=== PATIENT | female | born 1990 | race African-American/Black ===

== ENCOUNTER 2020-03-15 12:47 | Emergency (ER) | payer MEDICAID, SELFPAY ==
[2020-03-15 13:30] VITALS: BP 166/100; PULSE 90; RESP 16; TEMP 36.8; O2SAT 98; BMI 53.2
--- NOTE | 2020-03-15 13:46 | HMH.EDUTC ---
[facility] [place] Disposition Clinical Impression: Left flank pain Disposition: Home, Self-Care Condition on Discharge: Good Instructions: Acute Abdominal Pain, DI for Abdominal Pain-Adult Additional Instructions: Rest. Take the ibuprofen for pain that I sent in to your pharmacy. Follow up with your primary care physician. We will give you a list of physicians that are taking new patients. Follow up with gynecology. I put in a referral to Dr. Massey. Please call his office and get an appointment for further evaluation. GO TO THE ER FOR ANY WORSENING SYMPTOMS Prescriptions: Ibuprofen [Ibuprofen 600mg Tablet] 600 mg PO Q6HP PRN #30 tab PRN Reason: Mild Pain Transmission Status: Received by [facility] Ondansetron [Zofran 4mg ODT] 4 mg PO Q8HP PRN #10 tab.rapdis PRN Reason: Nausea Transmission Status: Received by [facility] Referrals: PCP,No [Primary Care Provider] - Elia Massey MD [Staff Physician] - Forms: Work/School Release Time of Disposition: 14:21 Medical Decision Making - Medical Records Medical records reviewed: No: I reviewed the patient's medical records. - Kenji Inquiry Pt receiving controlled substance: No Vital Signs: 03/15/20 13:30 03/15/20 14:46 Temperature 98.2 F 98.2 F Temperature Source Oral Oral Pulse Rate 90 Pulse Rate [Radial] 90 Respiratory Rate 16 16 Blood Pressure 166/100 H Blood Pressure [Right Arm] 166/100 H Blood Pressure Mean [Right Arm] 122 Blood Pressure Source Automatic Cuff Blood Pressure Source [Right Arm] Automatic Cuff Blood Pressure Position Sitting Blood Pressure Position [Right Arm] Sitting 02 Sat by Pulse Oximetry 98 Oxygen Delivery Method Room Air Room Air - Lab Data Lab results reviewed: Yes: I reviewed the patient's lab results. Lab Results 03/15/20 13:52: Urine Color Yellow, Urine Appearance Clear, Urine pH 6.0, Ur Specific [place] >= 1.030, Urine Protein Trace, Urine Glucose (UA) Negative, Urine Ketones Negative, Urine Blood Negative, Urine Nitrate Negative, Urine Bilirubin Negative, Urine Urobilinogen 0.2, Ur Leukocyte Esterase Negative Orders (Tests/Meds): ED MEDICATIONS Discontinued Medications Generic Name Dose Route Start Last Admin Trade Name Freq PRN Reason Stop Dose Admin Ketorolac Tromethamine 60 mg 03/15/20 14:15 03/15/20 14:39 Ketorolac 60mg/2ml Vial IM 03/15/20 14:16 60 mg ONCE ONE Administration Medical Decision Narrative: She refused to be transferred to er today. She is to return gabriella if her symptoms worsen. [facility] [place] HPI - General Stated complaint: ovarian pain Time Seen by Provider: 03/15/20 13:46 Mode of Arrival: Ambulatory Source of Information: Patient Limitations: No Limitations Description of Symptoms (Recalled from Triage Doc. by RN): LEFT OVARY PAIN INCREASED THROUGH OUT THE DAY HEENT Symptoms (Recalled from RN notes): No Resp Symptoms (Recalled from RN notes): No Skin Symptoms (Recalled from RN notes): No MS Symptoms (Recalled from RN notes): No Functional Status (Recalled from RN notes): WNL - History of Present Illness Provider Complaint: She states that she has a history of left ovarian cyst pain. This episode started 2 days ago. She rates her pain 6/10 at this time. Nothing that she can identify makes the pain worse or better at this time. She has been taking tylenol for the pain with not much relief. She denies any urinary complaints. She is currently on her period. - Related Data Previous Rx's Medication Instructions Recorded Ibuprofen [Ibuprofen 600mg 600 mg PO Q6HP PRN #30 tab 03/15/20 Tablet] Ondansetron [Zofran 4mg ODT] 4 mg PO Q8HP PRN #10 tab.rapdis 03/15/20 Allergies Allergy/AdvReac Type Severity Reaction Status Date / Time No Known Allergies Allergy Verified 12/28/18 21:08 - Worker's Comp Is this a Worker's Comp case?: No [facility] History - Hepatitis A Screen Drug use history?: No High risk sexual
[2020-03-15 14:46] VITALS: BP 166/100; PULSE 90; RESP 16; TEMP 36.8; O2SAT 98
[2020-03-15 18:01] LABS: Apearance,Urine Clear (Clear); Bilirubin,Urine Negative (Negative); Blood, Urine Negative (Negative); Color,Urine Yellow (Yellow); Glucose,Urine (UA) Negative (Negative); Ketones,Urine Negative (Negative); Protein,Urine Trace (Negative); Specific Gravity, Urine >= 1.030 (1.005-1.030)
[2020-03-15 18:02] LABS: UTC Leukocyte Esterase,Urine Negative (Negative); UTC Nitrate,Urine Negative (Negative); Urobilinogen,Urine 0.2 EU/dl (0.2)
== END 2020-03-15 14:48 | disposition home or self-care (01) ==
PROVIDERS: Emergency Provider Nurse Practitioner Family
DX: R10.32 Left lower quadrant pain (principal); R03.0 Elevated blood-pressure reading, without diagnosis of hypertension; F17.210 Nicotine dependence, cigarettes, uncomplicated; F41.8 Other specified anxiety disorders; K21.9 Gastro-esophageal reflux disease without esophagitis
CPT/HCPCS: 81003; 96372; 99202

== ENCOUNTER 2020-03-21 15:42 | Emergency (ER) | payer MEDICAID, SELFPAY ==
--- NOTE | 2020-03-21 | US_ITS ---
PROCEDURE: US TRANSVAGINAL CLINICAL INDICATION: Left lower quadrant pain, heavy painful periods COMPARISON: No exams were available for comparison FINDINGS: UTERUS: 8cm x 4cmx 4cm with a combined endometrial thickness of 3.7mm LEFT OVARY: 5cmxx3.1cm with a volume of . RIGHT OVARY: [id number] with a volume of 14.1ml. There is a fibroid in the fundus of the uterus anteriorly measuring 2 cm. There is a left ovarian cyst at 4.8 cm with other smaller follicles in the left ovary. There are few small follicles of the right ovary. There is bilateral ovarian blood flow. No cul-de-sac fluid evident. IMPRESSION: 1. 2 cm uterine fibroid. 2. Enlarged left ovary with 4.8 cm left ovarian cyst which appears simple in nature Dictated by: Marcelo Junior MD 03/22/2020 11:14 Marcelo Junior MD in [place] 03/22/2020 11:14
[2020-03-21 16:00] VITALS: BP 161/91; PULSE 99; RESP 18; TEMP 37.1; O2SAT 98; BMI 53.2
[2020-03-21 16:07] LABS: Microscopic, Urine URINE MICROSCOPIC (MICROSCOPIC)
[2020-03-21 16:12] LABS: Urine Pregnancy, HCG Qual. Negative (Negative)
--- NOTE | 2020-03-21 16:17 | HMH.EDGENADL ---
ED Disposition Clinical Impression: Left ovarian cyst Uterine fibroid Qualifiers: Uterine leiomyoma location: unspecified location Qualified Code(s): D25.9 - Leiomyoma of uterus, unspecified Disposition: Home, Self-Care Condition on Discharge: Good Instructions: DI for Uterine Fibroids, DI for Ovarian Cyst Additional Instructions: Follow-up with Dr. Massey in his office. Ibuprofen as needed for pain. May take Beggs as needed at night when you are not working or driving. Zofran as needed for vomiting or nausea. Return to the emergency department if severe intractable pain, intractable vomiting, fever. Additional instructions for CONTROLLED SUBSTANCES: You have been prescribed a medication that is a controlled substance. Controlled substances include pain medications known as opiates and sedative nerve medications known as benzodiazepines. Tramadol, fioricet, and gabapentin are also controlled substances. Some common opiates include: Codeine (such as Tylenol #3) Hydrocodone (Vicodin, Lortab, Lorcet, Beggs) Oxycodone (Percocet, Percodan, Oxycodone, Oxy IR) Some common benzodiazepines include: Diazepam (Valium) Lorazepam (Ativan) Alprazolam (Xanax) Clonazepam (Klonopin) Oxazepam (Serax) All of these controlled substances are highly addictive and frequently abused. Misuse can and frequently does lead to addiction as well as overdose and . Medication should be stored in a locked cabinet or other secure storage unit. Do not store the medication in a motor vehicle. Short term supplies, 3 days or less, are prescribed because of the highly addictive nature of the medication. Any of the controlled substance medication NOT taken should be disposed of properly and NOT SAVED. The recommended method of disposing of unused medications is: Place the medicines in a sealable plastic bag. If the medicine is a solid, crush it or add water to dissolve it. Add something undesirable (cat litter, coffee grounds, etc.) Dispose of sealed bag in household trash Do not flush or pour unused medicines down a sink or drain. Controlled substances should not be shared, given away or sold. Because of the addictive nature and frequent abuse, these medications are sometimes stolen. These medications should be kept in a safe place where they cannot be stolen. Do not keep them in your car or purse. Lost or stolen prescriptions for controlled substances WILL NOT BE REFILLED in this emergency department, regardless of whether a police report was filed. Prescriptions: Hydrocod/Acet 5/325 mg [Beggs 5/325mg tablet] 1 tab PO Q6HP PRN #10 tab PRN Reason: Pain Transmission Status: Received by [facility] Ibuprofen [Ibuprofen 800mg Tab] 800 mg PO Q8HP PRN #30 tab PRN Reason: Moderate Pain Transmission Status: Received by [facility] Ondansetron [Zofran 4mg ODT] 4 mg PO TIDP PRN #10 tab.rapdis PRN Reason: Nausea And Vomiting Transmission Status: Received by [facility] Referrals: PCP,No [Primary Care Provider] - - Critical Care Critical Care Time: No Attestation: On 03/21/20, the high probability of a clinically significant, sudden or life threatening deterioration of the following system(s) required my full and direct attention, intervention and personal management. The time I documented below is in addition to time spent performing reported procedures but includes the following listed in this critical care notation. Medical Decision Making - Medical Records Medical records reviewed: Yes: I reviewed the patient's medical records. - Kenji Inquiry Pt receiving controlled substance: Yes Kenji was queried for this patient: Yes Reference #:: [id number] Risks and benefits of using a controlled substance: were discussed with pt by me Comment: 0 rxs. Vital Signs: 03/21/20 16:00 03/21/20 16:19 03/21/20 17:30 Temperature 98.8 F Temperature Source Oral Pulse Rate [Right
[2020-03-21 16:19] VITALS: PULSE 91; O2SAT 97
[2020-03-21 16:19] LABS: Appearance,Urine CLEAR (Clear); Bilirubin,Urine Negative (Negative); Blood, Urine 2+ (Negative); Color,Urine YELLOW (Yellow); Glucose,Urine (UA) Negative (Negative); Ketones,Urine Negative (Negative); Leukocyte Esterase,Urine Negative (Negative); Nitrate,Urine Negative (Negative); PH,Urine 5.5 (5.0-8.5); Protein,Urine Negative (Negative); Specific Gravity, Urine >= 1.030 (1.005-1.030); Urobilinogen,Urine 0.2 EU/dl (0.2)
[2020-03-21 16:21] LABS: Bacteria,Urine 2+ /lpf; RBC,Urine Occasional #/hpf (0-3)
[2020-03-21 16:25] LABS: Chloride 105 mmol/L (98-107); Potassium 3.6 mmoL/L (3.5-5.1); Sodium 141 mmol/L (136-145)
--- NOTE | 2020-03-21 16:25 | CT_ITS ---
PROCEDURE: CT ABDOMEN PELVIS W CON CLINICAL INDICATION: LLQ abdominal pain COMPARISON: No exams were available for comparison TECHNIQUE: IV Contrast: 75ML OPTIRAY 350 Oral Contrast None Axial images obtained with sagittal and coronal reformats. All CT scans at the facility use one or more dose reduction, viz: automated exposure control, ma/kV adjustment per patient size (including targeted exams where dose is matched to indication, i.e. head), or iterative reconstruction technique. FINDINGS: LOWER THORAX: No acute finding ABDOMEN & PELVIS: Fatty liver. No focal liver lesion. Mild splenomegaly at 14 cm. The adrenal glands, pancreas, and kidneys have an unremarkable appearance. Unremarkable appendix. No intestinal obstruction or free air. There is a 4 cm left ovarian cyst. No acute bony anomaly. IMPRESSION: No acute finding. 4 cm left ovarian cyst Dictated by: Marcelo Junior MD 03/22/2020 11:12 Marcelo Junior MD in [place] 03/22/2020 11:12
[2020-03-21 16:28] LABS: Alanine Aminotransferase 20 U/L (12-78); Albumin Level 4.5 g/dl (3.5-5.0); Albumin/Globulin Ratio 1.2 (1.1-1.8); Alkaline Phosphatase 85 U/L (38-126); Anion Gap 12.6 mEq/L (5-15); Aspartate Amino Transferase 23 U/L (14-36); Basophils % 0.3 % (0.1-2.0); Bilirubin,Total 0.2 mg/dl (0.2-1.3); Blood Urea Nitrogen 10 mg/dl (7-17); Carbon Dioxide 27 mmol/L (22.0-30.0); Creatinine Clearance Estimated 135 mL/min (50-200); Eosinophils # 0.2 K/mm3 (0.0-0.4); Eosinophils % 2.1 % (0.1-12.0); Estimated Glomerular Filt Rate 118 ml/min (>60); GFR (African American) 143 ML/MIN (>60); Globulin 3.7 g/dL (1.3-3.2); Hematocrit 43.1 % (37.0-47.0); Hemoglobin 13.7 g/dL (12.2-16.2); Lymphocytes # 2.7 K/mm3 (0.7-4.5); Lymphocytes % 26.6 % (10-50); Mean Corpuscular HGB Conc 31.7 g/dL (31.8-35.4); Mean Corpuscular Hemoglobin 27.4 pg (27.0-31.2); Mean Corpuscular Volume 86.3 fl (81-99); Mean Platelet Volume 8.2 fl (7.4-10.4); Monocytes # 0.4 K/mm3 (0.1-1.0); Monocytes % 3.8 % (1.7-9.3); Neutrophils # 6.8 K/mm3 (1.8-7.8); Neutrophils % 67.3 % (37.0-80.0); Platelet Count 290 K/mm3 (142-424); Red Cell Distribution Width 14.2 % (11.5-17.5); Total Protein,Serum 8.2 g/dl (6.3-8.2); White Blood Count 10.1 K/mm3 (4.8-10.8)
[2020-03-21 16:29] LABS: Calcium 9.2 mg/dl (8.4-10.2); Glucose 86 mg/dl (74-100)
[2020-03-21 16:43] LABS: Lipase 86 U/L (23-300)
--- NOTE | 2020-03-21 16:44 | PC.NURSE ---
pt to CT
[2020-03-21 17:30] VITALS: BP 180/95; PULSE 91; RESP 20; O2SAT 99
[2020-03-21 18:12] VITALS: BP 158/94; PULSE 85; RESP 16; TEMP 36.6; O2SAT 98
== END 2020-03-21 18:14 | disposition home or self-care (01) ==
PROVIDERS: Emergency Provider Emergency Medicine
DX: N83.202 Unspecified ovarian cyst, left side (principal); D25.9 Leiomyoma of uterus, unspecified; I10 Essential (primary) hypertension; F17.210 Nicotine dependence, cigarettes, uncomplicated
CPT/HCPCS: 74177; 76830; 80053; 81001; 81025; 83690; 85025; 87086; 96365; 96375; 99283; J2405; Q9967

== ENCOUNTER 2020-06-15 10:18 | Emergency (ER) | payer MEDICAID, SELFPAY ==
[2020-06-15 10:30] VITALS: BP 151/76; PULSE 90; RESP 20; TEMP 36.9; O2SAT 98; BMI 53.2
--- NOTE | 2020-06-15 10:48 | HMH.EDUTC ---
[facility] [place] Clinical Impression: Sinusitis Qualifiers: Sinusitis location: unspecified location Chronicity: unspecified Qualified Code(s): J32.9 - Chronic sinusitis, unspecified Disposition: Home, Self-Care Condition on Discharge: Good Instructions: Sinusitis, DI for Sinusitis, DI for COVID-19 (Suspected or Confirmed ), Coronavirus Disease 2018, Preventing the Spread of Coronavirus Discharge Instructions Additional Instructions: *Monitor Temp, Over the counter Motrin or Tylenol as directed/as needed Tylenol every 4 hours and Motrin every 6 hours (as long as your family doctor has told you that you can take it) for fever or pain. and straight to ER if unable to lower temp less than 101.0 after medication given *Warm salt water gargles may help to soothe the throat *Throat Lozenges *Warm fluids like tea with honey may help to soothe the throat *Sleep elevated *Humidifier/Vaporizer Follow up IMMEDIATELY for new or worsening symptoms or no Noticeable improvement over the next 48-72 hours. 911 for difficulty breathing or swallowing You were tested for today for COVID19 your test result should be back in the next 24-48 hours, you may call to the [facility] to see if your test results are back in the next 48 hours [phone] [facility] hours are 9am-9pm You was given a handout with instructions for Self Quarantine and Self isolation for while you wait on test results and what to do if they are positive If you are positive the Health Dept will be contacting you also Prescriptions: Amoxicillin/Potassium Clav [Augmentin 875-125 Tablet] 1 tab PO Q12H 7 Days #14 tab Transmission Status: Pending to [facility] Fluticasone Propionate [Flonase 50mcg nasal spray 16gm] 1 spr NS DAILY #1 bottle Transmission Status: Pending to [facility] Referrals: PCP,No [Primary Care Provider] - As needed Forms: Work/School Release Time of Disposition: 10:55 Medical Decision Making - Kenji Inquiry Pt receiving controlled substance: No Kenji was queried for this patient: No Vital Signs: 06/15/20 10:30 Temperature 98.5 F Temperature Source Oral Pulse Rate [Right Brachial] 90 Respiratory Rate 20 Blood Pressure [Right Arm] 151/76 H Blood Pressure Mean [Right Arm] 101 Blood Pressure Source [Right Arm] Automatic Cuff Blood Pressure Position [Right Arm] Sitting 02 Sat by Pulse Oximetry 98 Oxygen Delivery Method Room Air - Lab Data Lab results reviewed: Yes: I reviewed the patient's lab results. Orders (Tests/Meds): ORDERS Category Date Time Status Covid-19 Nasal PCR Sendout P&[facility] Stat Lab 06/15/20 10:22 Received [facility] [place] - General Stated complaint: covid test Time Seen by Provider: 06/15/20 10:48 Mode of Arrival: Ambulatory Source of Information: Patient Limitations: No Limitations Description of Symptoms (Recalled from Triage Doc. by RN): PATIENT C/O BODY ACHES, CHILLS, MILD INTERMITTEN FEVER, NAUSEA, DIARRHEA, AND HEADACHE SINCE FRIDAY HEENT Symptoms (Recalled from RN notes): No Resp Symptoms (Recalled from RN notes): No Skin Symptoms (Recalled from RN notes): No MS Symptoms (Recalled from RN notes): Yes Functional Status (Recalled from RN notes): WNL - History of Present Illness Provider Complaint: Patient states that she has been having sinus pain and pressure, body aches, chills, headache and over all feeling like she has the flu States that she has been sick about a week and not got any better so she came in to get tested - Related Data Home Medications Medication Instructions Recorded Confirmed lamotrigine 100 mg tablet 200 mg PO DAILY 04/13/20 06/15/20 quetiapine 400 mg tablet,extended 400 mg PO DAILY 04/13/20 06/15/20 release 24 hr Previous Rx's Medication Instructions Recorded Amoxicillin/Potassium Clav 1 tab PO Q12H 7 Days #14 tab 06/15/20 [Augmentin 875-125 Tablet] Fluticasone Propionate [Flonase 1 spr NS DAILY #1 bottle 06/15/20 50mcg nasal spray 16gm] Allergies Al
[2020-06-15 10:58] VITALS: BP 151/76; PULSE 90; RESP 20; TEMP 36.9; O2SAT 98
[2020-06-16 07:34] LABS: Covid-19 Nasal PCR Sendout P&C NEGATIVE
== END 2020-06-15 11:00 | disposition home or self-care (01) ==
PROVIDERS: Emergency Provider Nurse Practitioner
DX: Z20.822 Contact with and (suspected) exposure to COVID-19 (principal); J32.9 Chronic sinusitis, unspecified; F17.210 Nicotine dependence, cigarettes, uncomplicated
CPT/HCPCS: 99202; G0463; U0004

== ENCOUNTER 2020-08-10 19:36 | Emergency (ER) | payer MEDICAID, SELFPAY ==
[2020-08-10 19:37] VITALS: BP 141/73; PULSE 106; RESP 22; TEMP 37.2; O2SAT 98; BMI 53.5
[2020-08-10 20:08] LABS: Microscopic, Urine URINE MICROSCOPIC (MICROSCOPIC)
--- NOTE | 2020-08-10 20:08 | XR_ITS ---
PROCEDURE: XR LUMBAR SPINE MIN 4V CLINICAL INDICATION: back pain COMPARISON: No exams were available for comparison FINDINGS: No fracture or dislocation. No lytic or blastic change. There is normal mineralization. The joint spaces are well-preserved. No significant degenerative/arthritic changes. No erosive changes evident. Other findings:Minimal lumbar curvature convex right IMPRESSION: No acute findings. Dictated by: Marcelo Junior MD 08/11/2020 06:01 Marcelo Junior MD in [place] 08/11/2020 06:01
[2020-08-10 20:12] LABS: Appearance,Urine CLEAR (Clear); Bilirubin,Urine Negative (Negative); Blood, Urine Negative (Negative); Color,Urine YELLOW (Yellow); Glucose,Urine (UA) Negative (Negative); Ketones,Urine Negative (Negative); Leukocyte Esterase,Urine Negative (Negative); Nitrate,Urine Negative (Negative); Protein,Urine Negative (Negative); Specific Gravity, Urine >= 1.030 (1.005-1.030); Urobilinogen,Urine 0.2 EU/dl (0.2)
--- NOTE | 2020-08-10 20:12 | HMH.EDGENADL ---
ED Disposition Clinical Impression: Lumbar strain Qualifiers: Encounter type: initial encounter Qualified Code(s): S39.012A - Strain of muscle, fascia and tendon of lower back, initial encounter Disposition: Home, Self-Care Condition on Discharge: Good Instructions: DI for Low Back Pain, DI for Muscle Strain Additional Instructions: And evaluated for low back pain, diagnosed with a lumbar muscle strain. Please take anti-inflammatories like 600 mg ibuprofen. Take Robaxin as needed for muscle spasm. Do not take this medication before driving. Use heat, ice, stretching exercises. Follow-up with your primary care doctor. Prescriptions: Ibuprofen [Ibuprofen 600mg Tablet] 600 mg PO Q8 #18 tab Transmission Status: Received by [facility] methocarbamoL [Robaxin 750mg Tab] 750 mg PO TID PRN #12 tab PRN Reason: Muscle Spasm Transmission Status: Received by [facility] Referrals: Roseanne Azar DO [Primary Care Provider] - Forms: Work/School Release Time of Disposition: 21:33 - Critical Care Critical Care Time: No Attestation: On 08/10/20, the high probability of a clinically significant, sudden or life threatening deterioration of the following system(s) required my full and direct attention, intervention and personal management. The time I documented below is in addition to time spent performing reported procedures but includes the following listed in this critical care notation. Medical Decision Making - Medical Records Medical records reviewed: Yes: I reviewed the patient's medical records. - Kenji Inquiry Pt receiving controlled substance: No Vital Signs: 08/10/20 19:37 08/10/20 21:52 Temperature 98.9 F 98.2 F Temperature Source Oral Oral Pulse Rate 75 Pulse Rate [Left Radial] 106 H Respiratory Rate 22 18 Blood Pressure 123/75 Blood Pressure [Right Arm] 141/73 H Blood Pressure Mean [Right Arm] 95 Blood Pressure Source Automatic Cuff Blood Pressure Source [Right Arm] Automatic Cuff Blood Pressure Position Sitting Blood Pressure Position [Right Arm] Supine 02 Sat by Pulse Oximetry 98 Oxygen Delivery Method Room Air Room Air - Lab Data Lab Results 08/10/20 19:51: Urine Color Yellow, Urine Appearance Clear, Urine pH 6.0, Ur Specific [place] >= 1.030, Urine Protein Negative, Urine Glucose (UA) Negative, Urine Ketones Negative, Urine Blood Negative, Urine Nitrate Negative, Urine Bilirubin Negative, Urine Urobilinogen 0.2, Ur Leukocyte Esterase Negative, Urine WBC 3-5, Ur Squamous Epith Cells 3-5, Urine Bacteria 1+, Urine Mucus 1+, Urine Sperm Occ 08/10/20 19:51: Urine HCG, Qual Negative Orders (Tests/Meds): ED MEDICATIONS Discontinued Medications Generic Name Dose Route Start Last Admin Trade Name Charo PRN Reason Stop Dose Admin Hydrocodone Bitart/Acetaminophen 1 tab 08/10/20 20:09 08/10/20 20:23 Hydrocodone/Apap 5/325 Mg Tablet PO 08/10/20 20:10 1 tab ONCE ONE Administration Ketorolac Tromethamine 15 mg 08/10/20 20:08 08/10/20 20:28 Ketorolac 30mg/Ml Vial IM 08/10/20 20:09 Not Given ONCE ONE Ketorolac Tromethamine 15 mg 08/10/20 20:27 08/10/20 20:28 Ketorolac 60mg/2ml Vial IM 08/10/20 20:28 15 mg ONCE ONE Administration ORDERS Category Date Time Status XR lumbar spine min 4V Stat Exams 08/10/20 20:08 Taken Medical Decision Narrative: In summary this is a 30-year-old female presenting to the emergency department with back pain. Patient clinically stable on arrival. Vital signs within normal limits with exception of tachycardia. She appears uncomfortable. No red flag symptoms of cauda equina, vertebral abscess. Will obtain urinalysis, urine test. Will also obtain screening x-rays of the lumbar spine. Patient given 15 mg IM Toradol and Gerlaw. Urinalysis shows no red blood cells to indicate kidney stone. No urinary tract infection. negative. X-rays show no obvious fracture or dislocat
[2020-08-10 20:23] LABS: Urine Pregnancy, HCG Qual. Negative (Negative)
[2020-08-10 20:24] LABS: Bacteria,Urine 1+ /lpf; Mucus,Urine 1+ /lpf; Sperm,Urine OCC /lpf
[2020-08-10 21:52] VITALS: BP 123/75; PULSE 75; RESP 18; TEMP 36.8; O2SAT 98
== END 2020-08-10 21:56 | disposition home or self-care (01) ==
PROVIDERS: Emergency Provider Emergency Medicine; PCP Emergency Medicine
DX: S39.012A Strain of muscle, fascia and tendon of lower back, initial encounter (principal); F17.210 Nicotine dependence, cigarettes, uncomplicated
CPT/HCPCS: 72110; 81001; 81025; 96372; 99282

== ENCOUNTER → 2021-06-20 11:15 | Outpatient (CLI) | payer MEDICAID, SELFPAY | PROVIDERS: Visit Provider Nurse Practitioner | DX: Z20.822 Contact with and (suspected) exposure to COVID-19 (principal) | CPT/HCPCS: C9803; U0003; U0005 ==

== ENCOUNTER 2021-12-25 03:39 | Emergency (ER) | payer MEDICAID, SELFPAY ==
[2021-12-25 03:40] VITALS: BP 155/100; PULSE 105; RESP 25; TEMP 36.9; O2SAT 99; BMI 54.8
[2021-12-25 03:50] VITALS: BMI 54.8
--- NOTE | 2021-12-25 03:51 | CT_ITS ---
PROCEDURE INFORMATION: Exam: CT Abdomen And Pelvis With Contrast Exam date and time: 12/25/2021 4:17 AM Age: 31 years old Clinical indication: Abdominal pain; Localized; Upper; Patient HX: PT has HX of known gallbladder issues; Additional info: Upper abd pain w n/v TECHNIQUE: Imaging protocol: Computed tomography of the abdomen and pelvis with contrast. Radiation optimization: All CT scans at this facility use at least one of these dose optimization techniques: automated exposure control; mA and/or kV adjustment per patient size (includes targeted exams where dose is matched to clinical indication); or iterative reconstruction. Contrast material: ISOVUE; Contrast volume: 75 ml; Contrast route: IV; COMPARISON: CT ABDOMEN PELVIS W CON 03/21/2020 4:46 PM FINDINGS: Liver: No acute findings. No mass. Gallbladder and bile ducts: No acute findings, calcified stones or ductal dilation. Pancreas: No acute findings, focal abnormality or ductal dilation. Spleen: Borderline splenomegaly. Adrenal glands: Normal. No mass. Kidneys and ureters: No hydronephrosis. Stomach and bowel: No obstruction. No mucosal thickening. Appendix: No evidence of appendicitis. Intraperitoneal space: No free air. No significant fluid collection. Vasculature: No abdominal aortic aneurysm. Lymph nodes: No pathologically enlarged lymph nodes. Urinary bladder: Unremarkable as visualized. Reproductive: Unremarkable as visualized. Bones/joints: No acute fracture. Soft tissues: No acute findings. IMPRESSION: No acute findings in the abdomen or pelvis.
[2021-12-25 03:55] LABS: Microscopic, Urine URINE MICROSCOPIC (MICROSCOPIC)
[2021-12-25 04:06] LABS: Basophils # 0.1 K/mm3 (0-0.2); Basophils % 0.4 % (0.1-2.0); Eosinophils # 0.2 K/mm3 (0.0-0.4); Eosinophils % 1.3 % (0.1-12.0); Hematocrit 38.9 % (37.0-47.0); Lymphocytes # 2.1 K/mm3 (0.7-4.5); Lymphocytes % 15.8 % (10-50); Mean Corpuscular HGB Conc 33.3 g/dL (31.8-35.4); Mean Corpuscular Volume 81.2 fl (81-99); Monocytes # 0.6 K/mm3 (0.1-1.0); Monocytes % 4.1 % (1.7-9.3); Neutrophils # 10.6 K/mm3 (1.8-7.8); Neutrophils % 78.4 % (37.0-80.0); Platelet Count 276 K/mm3 (142-424); Red Cell Distribution Width 14.9 % (11.5-17.5); White Blood Count 13.5 K/mm3 (4.8-10.8)
[2021-12-25 04:20] LABS: Amylase 54 U/L (30-110)
[2021-12-25 04:21] LABS: Alanine Aminotransferase 66 U/L (12-78); Albumin/Globulin Ratio 1.1 (1.1-1.8); Alkaline Phosphatase 110 U/L (38-126); Aspartate Amino Transferase 108 U/L (14-36); Blood Urea Nitrogen 10 mg/dl (7-17); Calcium 8.9 mg/dl (8.4-10.2); Carbon Dioxide 24 mmol/L (22.0-30.0); Chloride 106 mmol/L (98-107); Creatinine Clearance Estimated 160 mL/min (50-200); Estimated Glomerular Filt Rate 145 ml/min (>60); GFR (African American) 175 ML/MIN (>60); Globulin 3.5 g/dL (1.3-3.2); Glucose 134 mg/dl (74-100); Lipase 85 U/L (23-300); Sodium 139 mmol/L (136-145); Total Protein,Serum 7.5 g/dl (6.3-8.2)
[2021-12-25 04:26] LABS: Appearance,Urine CLEAR (Clear); Bilirubin,Urine Negative (Negative); Blood, Urine 1+ (Negative); Color,Urine YELLOW (Yellow); Glucose,Urine (UA) Negative (Negative); Ketones,Urine Negative (Negative); Leukocyte Esterase,Urine Negative (Negative); Nitrate,Urine Negative (Negative); Protein,Urine Negative (Negative); Urobilinogen,Urine 0.2 EU/dl (0.2)
[2021-12-25 04:26] LABS: C-Reactive Protein 16.2 mg/L (0-4)
[2021-12-25 04:40] LABS: Procalcitonin 0.041 ng/mL (0.0-2.0)
[2021-12-25 04:42] LABS: Erythrocyte Sedimentation Rate 18 mm/hr (0-20)
[2021-12-25 04:48] LABS: Squamous Epithelial Cell,Urine Occasional #/hpf (0-5); WBC,Urine Occasional #/hpf (0-3); Yeast,Urine 1+ /lpf
--- NOTE | 2021-12-25 04:56 | HMH.EDNVD ---
ED Disposition Condition on Discharge: Good - Critical Care Critical Care Time: No <Alex Domingo - Last Filed: 12/25/21 07:55> Condition on Discharge: Good - Critical Care Critical Care Time: No <Juan Stephenson - Last Filed: 12/25/21 08:27> Clinical Impression: Biliary colic Abdominal pain Qualifiers: Abdominal location: epigastric Qualified Code(s): R10.13 - Epigastric pain Cholelithiasis Qualifiers: Cholelithiasis location: gallbladder Cholecystitis presence: without cholecystitis Biliary obstruction: without biliary obstruction Qualified Code(s): K80.20 - Calculus of gallbladder without cholecystitis without obstruction Disposition: Home, Self-Care Instructions: DI for Gallstones, DI for Acute Abdominal Pain Additional Instructions: follow up Dr Garcia 1-2 days, return here for worse Prescriptions: Hydrocod/Acet 5/325 mg [[place] 5/325mg tablet] 1 tab PO TID PRN #3 tab PRN Reason: Moderate To Severe Pain Transmission Status: Received by [facility] # Pantoprazole Sodium [Protonix 40mg tablet] 40 mg PO HS #30 tab Transmission Status: Pending to [facility] # Ondansetron [Zofran 4mg ODT] 4 mg PO TIDP PRN #12 tab PRN Reason: Nausea And Vomiting Transmission Status: Pending to [facility] # Referrals: Shanon Mcgee MD [Primary Care Provider] - Guanako Dao MD [Staff Physician] - Attestation: On 12/25/21, the high probability of a clinically significant, sudden or life threatening deterioration of the following system(s) required my full and direct attention, intervention and personal management. The time I documented below is in addition to time spent performing reported procedures but includes the following listed in this critical care notation. Medical Decision Making - Medical Records Medical records reviewed: Yes: I reviewed the patient's medical records. - Kenji Inquiry Pt receiving controlled substance: No - Lab Data Lab results reviewed: Yes: I reviewed the patient's lab results. Result diagrams: 12/25/21 03:54 12/25/21 03:54 - CT Data CT Scan: Abdomen, Pelvis Time Received: 07:[address] Reviewed: Yes: I have viewed the radiologist's interpretation Preliminary Findings: Normal/NAD <Alex Domingo Blanca - Last Filed: 12/25/21 07:55> - Medical Records Medical records reviewed: Yes: I reviewed the patient's medical records. - Kenji Inquiry Pt receiving controlled substance: No - Lab Data Result diagrams: 12/25/21 03:54 12/25/21 03:54 - Reevaluation(s) Time: 08:18 (reeval, appears well, abd soft, says she feels better, symptoms c/w intermittent biliary colic, discussed with Dr Garcia agreed to f/u in office, pt agreed) <Juan Stephenson - Last Filed: 12/25/21 08:27> Vital Signs: 12/25/21 03:40 Temperature 98.5 F Temperature Source Oral Pulse Rate [Right] 105 H Respiratory Rate 25 H Blood Pressure [Right Arm] 155/100 H Blood Pressure Mean [Right Arm] 118 Blood Pressure Source [Right Arm] Automatic Cuff 02 Sat by Pulse Oximetry 99 Oxygen Delivery Method Room Air - Lab Data Lab Results 12/25/21 03:48: Urine Color Yellow, Urine Appearance Clear, Urine pH 7.0, Ur Specific [place] 1.020, Urine Protein Negative, Urine Glucose (UA) Negative, Urine Ketones Negative, Urine Blood 1+, Urine Nitrate Negative, Urine Bilirubin Negative, Urine Urobilinogen 0.2, Ur Leukocyte Esterase Negative, Urine RBC 3-5, Urine WBC Occasional, Ur Squamous Epith Cells Occasional, Urine Bacteria None, Urine Yeast 1+ 12/25/21 03:54: ESR 18 12/25/21 03:54: C-Reactive Protein 16.2 H, Amylase 54, Procalcitonin 0.041 12/25/21 03:54: WBC 13.5 H, RBC 4.80, Hgb 13.0, Hct 38.9, MCV 81.2, MCH 27.0, MCHC 33.3, RDW 14.9, Plt Count 276, MPV 8.0, Neut % (Auto) 78.4, Lymph % (Auto) 15.8, [place] % (Auto) 4.1, Eos % (Auto) 1.3, Baso % (Auto) 0.4, Neut # (Auto) 10.6 H, Lymph # (Auto) 2.1, [place] # (Auto) 0.6, Eos # (Auto) 0.2, Baso # (Auto) 0.1
[2021-12-25 05:00] LABS: Bilirubin,Total 0.3 mg/dl (0.2-1.3)
--- NOTE | 2021-12-25 07:26 | US_ITS ---
FINAL REPORT TECHNIQUE: Sonographic images of the right upper quadrant were obtained. CLINICAL HISTORY: ABD PAIN; morbid obesity FINDINGS: The liver is homogeneous. There is no focal hepatic lesion or intrahepatic biliary dilatation. There are gallstones in the gallbladder. There is no pericholecystic fluid collection or gallbladder wall thickening. The common duct measures 5 mm which is within normal limits. The pancreatic tail is partially obscured by bowel gas. Otherwise, it has a normal appearance. The right kidney measures 12.8 cm in [id number] length. There is no hydronephrosis, mass, or stone. There is no right upper quadrant ascites. IMPRESSION: Cholelithiasis. Reviewed, Interpreted and Dictated by Sugar Corona MD Transcribed by Martha Murphy Authenticated and [facility]
--- NOTE | 2021-12-25 07:27 | PC.NURSE ---
RADIOLOGY NOTIFIED OF GB U/S
--- NOTE | 2021-12-25 07:40 | PC.NURSE ---
PT TO U/S AT THIS TIME
--- NOTE | 2021-12-25 08:03 | PC.NURSE ---
PT RETURNED FROM U/S
--- NOTE | 2021-12-25 08:06 | PC.NURSE ---
DR. SCOTT AT BEDSIDE TO EVALUATE PT
--- NOTE | 2021-12-25 08:10 | PC.NURSE ---
GENERAL SURGERY NOTIFIED AT THIS TIME FOR PT CONSULT. DR. HURTADO RN ADMIT. MESSAGE LEFT WITH BARAK TO NOTIFY OF CONSULT
--- NOTE | 2021-12-25 08:13 | PC.NURSE ---
DARREN STEIN SPEAKING WITH DR. HURTADO
[2021-12-25 08:27] VITALS: BP 144/60; PULSE 77; RESP 18; TEMP 36.6; O2SAT 99
--- NOTE | 2021-12-25 08:30 | PC.NURSE ---
APPOINTMENT MADE WITH DR. HURTADO TODAY AT 10:30
[2021-12-25 08:45] VITALS: BP 130/68; PULSE 76; RESP 18; TEMP 36.9; O2SAT 98
== END 2021-12-25 08:47 | disposition home or self-care (01) ==
PROVIDERS: Emergency Provider Emergency Medicine; PCP Family Medicine
DX: K80.20 Calculus of gallbladder without cholecystitis without obstruction (principal); R11.2 Nausea with vomiting, unspecified; R19.7 Diarrhea, unspecified; I10 Essential (primary) hypertension; F17.210 Nicotine dependence, cigarettes, uncomplicated; Z82.49 Family history of ischemic heart disease and other diseases of the circulatory system
CPT/HCPCS: 74177; 76705; 80053; 81001; 82150; 83690; 84145; 85025; 85651; 86140; 96361; 96374; 96375; 99285; J2405; Q9967

== ENCOUNTER → 2021-12-29 12:39 | Outpatient (CLI) | payer MEDICAID, SELFPAY ==
[2021-12-29 14:07] LABS: Basophils # 0.1 K/mm3 (0-0.2); Basophils % 0.4 % (0.1-2.0); Eosinophils # 0.2 K/mm3 (0.0-0.4); Hematocrit 40.5 % (37.0-47.0); Hemoglobin 13.4 g/dL (12.2-16.2); Lymphocytes # 2.3 K/mm3 (0.7-4.5); Lymphocytes % 22.5 % (10-50); Mean Corpuscular HGB Conc 33.1 g/dL (31.8-35.4); Mean Corpuscular Hemoglobin 27.1 pg (27.0-31.2); Mean Platelet Volume 7.9 fl (7.4-10.4); Monocytes # 0.4 K/mm3 (0.1-1.0); Monocytes % 3.5 % (1.7-9.3); Neutrophils # 7.2 K/mm3 (1.8-7.8); Neutrophils % 71.5 % (37.0-80.0); Platelet Count 316 K/mm3 (142-424); Red Blood Count 4.94 M/mm3 (4.20-5.40); Red Cell Distribution Width 15.3 % (11.5-17.5); White Blood Count 10.1 K/mm3 (4.8-10.8)
[2021-12-29 14:25] LABS: Urine Pregnancy, HCG Qual. Negative (Negative)
== END ==
PROVIDERS: PCP Family Medicine; Visit Provider Surgery
DX: Z01.812 Encounter for preprocedural laboratory examination (principal); Z20.822 Contact with and (suspected) exposure to COVID-19; K82.9 Disease of gallbladder, unspecified
CPT/HCPCS: 36415; 81025; 85025; C9803; U0003; U0005

== ENCOUNTER 2021-12-31 11:08 | Day surgery (SDC) | payer MEDICAID, SELFPAY ==
[2021-12-27 13:24] VITALS: BMI 54.8
[2021-12-31] VITALS (12 sets, daily range): BP systolic 131–166; BP diastolic 44–99; PULSE 71–104; RESP 12–18; TEMP 36.1–43; O2SAT 92–97
--- NOTE | 2021-12-31 12:08 | P.PN_ITS ---
[facility] Anesthesia Checklist - Patient Identification Patient Identification: Arm Band - Structural Data Admitted From: Home Planned Operative Procedure/s: Laparoscopic Cholecystectomy Consent for Planned Operative Procedure(s) Verified: Yes Verified Documents: Surgical Consent, History and Physical - NPO Status Verified Time NPO: 00:00 - Additional verifications Anesthesia Reactions: No Hx Blood Transfusions: No Blood Transfusion Reaction: No - Airway Assessment C-Spine Mobility Assessed: Yes (mp2) TMJ Mobility Assessed: Yes Dentition: Good Dentition - Neurological Assessment Level of Consciousness: Awake, Alert - Anesthesia Plan Anesthesia Risk discussed: Yes Anesthesia Plan: Verified ASA Class: III Anesthesia Type: General [facility] History I have reviewed the patient's past medical history: Yes Medical History: Reports:: Hypertension Denies:: Cancer, Diabetes Mellitus Type 1, Internal Pacemaker, MRSA, Seizures Comment Only: Diabetes Mellitus Type 2 (PRE DIABETIC) *Have you ever received a pneumonia vaccine?: No *Have you received a flu vaccine this season?: No Other Medical History: Denies: Blood Transfusion Reaction Anesthesia experience/problems:: nac Laterality Cases: Bilateral: Tonsillectomy Other Surgeries: Yes: . No: Pacemaker Amputation: No Fractures: No - *Social History Last grade of school completed: GED Smoking Status: Former smoker Tobacco Type: cigarettes # Packs/Day (cigarettes): 1 #Yrs smoked (if former smoker): 13 Smoking End Date: 02/15/2021 Alcohol Intake: current Alcohol Intake Frequency:: holidays/special occasions only Substance Use Type: denies use *Occupational Status:: unemployed Housing: house Household Members: children *Travel in the last 8 weeks: None Family Hx:: No significant family history
--- NOTE | 2021-12-31 14:17 | HMH.OPNOTE ---
Date of procedure: 12/31/21 Pre-op Diagnosis:: Gallbladder disease, symptomatic gallstones Post-op Diagnosis:: Same Procedure performed:: Laparoscopic cholecystectomy Surgeon:: Guanako Dao MD OIL PAINTER:: Other Anesthesia: SONIYA Estimated blood loss (mL): 25 Clinical Note:: Patient is a 31-year-old female referred from the emergency department with gallstones. Patient resides in [place]. She states that during her about 7 months ago she had symptoms consistent with biliary colic. She had undergone ultrasound at [facility] which reportedly revealed sludge. She has had several additional attacks consistent with biliary colic which have usually been self-limited lasting about 10 to 20 minutes. This is characterized by sharp pain in the epigastrium with radiation to the upper quadrants. She states that recently she had an episode of such a flareup . It transiently resolved but then recurred and was quite severe. She states that this was worse than labor pains. She presented to the emergency department 12/25/21 where she was seen and evaluated. Her electrolytes were unremarkable. Liver function tests were relatively unremarkable other than slightly elevated AST. CT scan unremarkable. She had a gallbladder ultrasound performed which revealed findings of gallstones without sonographic evidence of cholecystitis. Surgery was contacted. It is felt that the patient warranted outpatient follow-up. She was scheduled to be seen in the office after discharge from the emergency department. Patient still seem to be symptomatic. She was tender on examination. The options were discussed with her. She wished to pursue cholecystectomy as soon as possible. Operative findings:: She had a distended gallbladder. There were a couple of loops of adherent small bowel in the lower abdomen from previous . No definite hernia was seen but due to potential small bowel injury these were not dissected free from the anterior pelvic wall. Post procedure careful evaluation of the CT scan revealed no evidence of any hernia at this site. Operative note:: Patient was taken to the operating room. She was given preoperative intravenous antibiotics. Once in the operating room she was placed in a supine position. General anesthesia was induced via endotracheal tube. Abdomen was prepped and draped in the standard surgical fashion. Subumbilical skin incision was made and while performing abdominal wall lift Veress needle was inserted. CO2 pneumoperitoneum was achieved to 15 mmHg. 11 mm optical trocar was inserted at the umbilicus. Intraperitoneal contents were visualized. She was noted to have couple of loops of small bowel adherent to the anterior abdomen from previous standstill for . Decision was made not to dissect these free. There was noted to be no visualized hernia. Patient was positioned in reverse Trendelenburg left side down. A couple of 5 mm trochars were inserted in the right upper abdomen. 10 mm trocar was inserted in the epigastrium. Gallbladder was identified and grasped retracted anteriorly and superiorly over the dome of the liver. Infundibulum of the gallbladder was retracted anterior laterally. Blunt dissection was carried out at the neck of the gallbladder bluntly incising the visceral peritoneum. Dissection was carried out clearly identifying the cystic duct and cystic artery. Cystic duct was isolated and multiply clipped and then divided. Cystic artery was carefully coagulated with JEAN ultrasonic harmonic johanne and divided. The gallbladder was dissected free from the liver in a retrograde fashion using JEAN ultrasonic harmonic johanne. Gallbladder was placed within an Endo Catch retrieval device and removed from peritoneal cavity via the umbilical trocar site. Gallbladder fossa was inspected for hemostasis which was assured. The fascial incision at the umbilicus was closed with the laparoscopic needle clos
--- NOTE | 2021-12-31 14:31 | HMH.ANESI ---
[facility] Anesthesia Record Part I Intake, IV Amount: 1,000 Estimated blood loss (mL): 20 Urine output (mL): 0 Blood Products used (#): none Blood Pressure: 141/80 SaO2: 92 Pulse Rate: 71 Respiratory Rate: 18 Temperature: 97.5 F Patient is:: Drowsy Stable to PACU at:: 14:25
--- NOTE | 2021-12-31 17:12 | P.PN_ITS ---
[facility] Anesthesia Record Part II Discharge Time: 14:35 Destination: Home PACU nurse assessment reviewed?: Yes Patient Condition:: Good Anesthesia Complications:: None Swallowing reflex intact?: Yes Cyanosis?: No Blood Pressure: 156/88 Pulse Rate: 88 Temperature: 97.0 F Mental Status: Alert & Oriented Pain level:: 0 Nausea and/or vomitting:: None Intake, IV Amount: 0
== END 2021-12-31 15:31 | disposition home or self-care (01) ==
LOC: OR 11:09
PROVIDERS: PCP Family Medicine; Visit Provider Surgery
PROC: 0FT44ZZ Resection of Gallbladder, Percutaneous Endoscopic Approach (ICD-10-PCS; CPT 47562; principal; 2021-12-31 13:00)
DX: K80.20 Calculus of gallbladder without cholecystitis without obstruction (principal); I10 Essential (primary) hypertension; Z79.899 Other long term (current) drug therapy
CPT/HCPCS: 47562; 96374; J2405

== ENCOUNTER 2022-01-28 09:10 | Emergency (ER) | payer MEDICAID, SELFPAY ==
[2022-01-28 10:50] VITALS: BP 142/82; PULSE 94; RESP 20; TEMP 36.6; O2SAT 96; BMI 56.3
--- NOTE | 2022-01-28 11:00 | EXP.UTC ---
Discharge Plan Disposition Patient Disposition: Home, Self-Care Condition: Good Prescriptions Prescriptions: New polymyxin B sulf-trimethoprim [Polytrim] 10,000 unit- 1 mg/mL drops 2 drp ophthalmic (eye) QID 7 Days Qty: 10 0RF Rx Instructions: 2 drops in left eye every 6 hours for 7 days No Action lamotrigine 100 mg tablet 200 mg PO DAILY Label Comments: I still take it but not right now becausea I have a 4 mn old quetiapine 400 mg tablet extended release 24 hr 50 mg PO DAILY Label Comments: I still take it but not right now becausea I have a 4 mn old labetalol 200 MG tablet 200 mg PO DAILY Label Comments: I take it when I need to or remember it ondansetron 4 MG tablet,disintegrating 4 mg PO TIDP PRN (Reason: Nausea And Vomiting) Qty: 12 0RF hydrocodone-acetaminophen 1 TAB tablet 1 tab PO TID PRN (Reason: Moderate To Severe Pain) Qty: 3 0RF pantoprazole 40 MG tablet,delayed release (DR/EC) 40 mg PO HS hydrocodone-acetaminophen 1 TAB tablet 1 - 2 tab PO Q6HP PRN (Reason: Moderate Pain) Qty: 21 0RF hydrocodone-acetaminophen 1 TAB tablet 1 - 2 tab PO Q6HP PRN (Reason: Moderate Pain) Qty: 17 0RF Referrals Follow up/Referrals: Paola Phillips [Primary Care Provider] - See instructions Activity Restrictions/Add. Instructions Additional Instructions/Restrictions: Wash hands well before and after applying eye drops *Monitor Temp, Over the counter Motrin or Tylenol as directed/as needed Tylenol every 4 hours and Motrin every 6 hours (as long as your family doctor has told you that you can take it) for fever or pain. and straight to ER if unable to lower temp less than 101.0 after medication given *Warm salt water gargles may help to soothe the throat *Throat Lozenges? *Warm fluids like tea with honey may help to soothe the throat? *Sleep elevated *Humidifier/Vaporizer Your throat swab was sent for culture. Those results are typically sent to your primary care. Be sure to follow up in 2-3 days with your family doctor/primary care physician if no improvement so they can review those result and treat if necessary. If you don?t have a primary care doctor, I recommend you get one but in the mean time, you will have to return to a walk in clinic Follow up IMMEDIATELY for new or worsening symptoms or no Noticeable improvement over the next 48-72 hours. 911 for difficulty breathing or swallowing Follow up with your Eye Doctor if no improvement or any worsening of symptoms Clinical Impressions Clinical Impression: Conjunctivitis, Sore throat Instructions Patient Instructions: Sore Throat, DI for Conjunctivitis Discharge ED Provider: Emilie Calderon [facility] HPI General Stated complaint: sore throat, irritated eye Time Seen by Provider: 01/28/22 11:04 History of Present Illness Provider Complaint: Patient states that she has been having sore throat, drainage and matting in her left eye States that today her eye was matted shut and she was still having sore throat so she came in to get checked out Related Data Home Medications Medication Instructions Recorded Confirmed lamotrigine 100 mg tablet 200 mg PO DAILY BIPOLAR 04/13/20 12/31/21 quetiapine 400 mg tablet,extended 50 mg PO DAILY BIPOLAR/PTSD 04/13/20 12/31/21 release 24 hr labetalol 200 mg tablet 200 mg PO DAILY High blood pressure 12/25/21 12/31/21 pantoprazole 40 mg tablet,delayed 40 mg PO HS Reflux/Acid reflux 12/27/21 12/31/21 release Previous Rx's Medication Instructions Recorded hydrocodone 5 mg-acetaminophen 325 1 tab PO TID PRN Moderate To 12/25/21 mg tablet Severe Pain #3 tabs ondansetron 4 mg disintegrating 4 mg PO TIDP PRN Nausea And 12/25/21 tablet Vomiting #12 tabs hydrocodone 5 mg-acetaminophen 325 1 - 2 tab PO Q6HP PRN Moderate 12/31/21 mg tablet Pain #17 tabs hydrocodone 5 mg-acetaminophen 325 1 - 2 tab PO Q6HP PRN Moderate 12/31
[2022-01-28 11:09] LABS: UTC Strep Screen (Rapid) Negative (Negative)
[2022-01-28 11:15] VITALS: BP 142/82; PULSE 94; RESP 20; TEMP 36.6; O2SAT 96
== END 2022-01-28 11:19 | disposition home or self-care (01) ==
PROVIDERS: Emergency Provider Nurse Practitioner; PCP Family Medicine Sports Medicine
DX: J02.9 Acute pharyngitis, unspecified (principal); H10.32 Unspecified acute conjunctivitis, left eye
CPT/HCPCS: 87880; 99212; G0463

== ENCOUNTER 2022-04-13 18:27 | Observation (INO) | payer MEDICAID, SELFPAY ==
[2022-04-13 18:27] VITALS: BP 173/98; PULSE 114; RESP 16; TEMP 36.8; O2SAT 98; BMI 56.3
[2022-04-13 21:33] LABS: Alanine Aminotransferase 32 U/L (12-78); Albumin Level 4.2 g/dl (3.5-5.0); Albumin/Globulin Ratio 1.1 (1.1-1.8); Alkaline Phosphatase 126 U/L (38-126); Anion Gap 15.6 mEq/L (5-15); Aspartate Amino Transferase 21 U/L (14-36); Bilirubin,Total 0.2 mg/dl (0.2-1.3); Blood Urea Nitrogen 6 mg/dl (7-17); Calcium 9.2 mg/dl (8.4-10.2); Carbon Dioxide 25 mmol/L (22.0-30.0); Chloride 101 mmol/L (98-107); Creatinine Clearance Estimated 132 mL/min (50-200); Estimated Glomerular Filt Rate 117 ml/min (>60); GFR (African American) 141 ML/MIN (>60); Globulin 3.8 g/dL (1.3-3.2); Glucose 119 mg/dl (74-100); Lactic Acid 0.8 mmol/L (0.7-2.1); Potassium 3.6 mmoL/L (3.5-5.1); Sodium 138 mmol/L (136-145)
[2022-04-13 21:38] LABS: C-Reactive Protein 53.5 mg/L (0-4)
--- NOTE | 2022-04-13 21:55 | HMH.EDALLER ---
Discharge Plan Disposition Patient Disposition: Admitted As Inpatient Chief Complaint: Allergic Reaction Prescriptions Prescriptions: No Action No Known Home Medications Referrals Follow up/Referrals: Paola Phillips [Primary Care Provider] - See instructions Clinical Impressions Clinical Impression: Cellulitis, SIRS (systemic inflammatory response syndrome), Obesity Discharge ED Provider: Alex Domingo Allergic React/Insect Bite HPI General Chief complaint: Allergic Reaction Stated complaint: poss infected wasp sting Time Seen by Provider: 04/13/22 21:55 Mode of Arrival - ED Triage: Ambulatory Source of Information: Patient and Medical Record Limitations: No Limitations History of Present Illness HPI narrative: wasp sting a few days ago with progressive swelling and tenderness - lumbar area complaint: other Onset (ago): day(s) Exposure: insect bite Symptoms: rash Treatment prior to arrival: benadryl Allergies Allergy/AdvReac Type Severity Reaction Status Date / Time No Known Allergies Allergy Verified 12/31/21 11:33 Related Data Home Medications Medication Instructions Recorded Confirmed No Known Home Medications 04/13/22 04/13/22 PFS PFS Medical History (Updated 04/13/22 @ 22:35 by Alex Domingo MD) Anxiety Depression Hypertension Surgical History (Updated 01/28/22 @ 11:12 by Steph Jacinto RN) History of section History of cholecystectomy History of tonsillectomy History of tubal ligation Social History (Updated 01/28/22 @ 11:13 by Steph Jacinto, RN) Smoking Status: Current every day smoker tobacco type: cigarettes packs per day: 1 second hand exposure: No alcohol intake: current counseling provided: none substance use type: denies use current occupational status: unemployed Travel in the last 8 weeks: None household members: children housing: house caffeine: Yes ROS Obtained: Yes All systems reviewed & no additional complaints except as documented Physical Exam General General appearance: alert and obese Head Head exam: normocephalic Eye Eye exam: Present normal appearance ENT ENT exam: Present normal oropharynx Neck Neck exam: Present trachea midline Respiratory Respiratory exam: Absent respiratory distress Cardiovascular Cardiovascular exam: Present regular rate Abdominal Exam Abdominal exam: Present soft Extremities Exam Extremities exam: Absent calf tenderness Neurological Exam Neurological exam: Present alert, oriented X3 and CN II-XII intact Skin Skin exam: Present other (has infection to l/s area consistent with cellulitis ) Medical Decision Making Medical Records Medical records reviewed: Yes I reviewed the patient's medical records. Kenji Inquiry Pt receiving controlled substance: No Vital Signs: 04/13/22 18:27 Temperature 98.2 F Temperature Source Oral Pulse Rate [Right] 114 H Respiratory Rate 16 Blood Pressure [Right Arm] 173/98 H Blood Pressure Mean [Right Arm] 123 02 Sat by Pulse Oximetry 98 Lab Data Lab results reviewed: Yes I reviewed the patient's lab results. Lab Results 04/13/22 21:15: WBC 17.2 H, RBC 4.42, Hgb 13.5, Hct 37.0, MCV 83.8, MCH 30.6, MCHC 36.5 H, RDW 14.3, Plt Count 296, MPV 8.3, Neut % (Auto) 85.9 H, Lymph % (Auto) 9.6 L, [place] % (Auto) 3.3, Eos % (Auto) 0.8, Baso % (Auto) 0.4, Neut # (Auto) 14.8 H, Lymph # (Auto) 1.7, [place] # (Auto) 0.6, Eos # (Auto) 0.1, Baso # (Auto) 0.1, Total Counted 100, Neutrophils % (Manual) 79 H, Band Neutrophils % 9.0 H, Lymphocytes % (Manual) 8 L, Monocytes % (Manual) 4, Toxic Granulation 1+, Platelet Estimate Normal, RBC Morphology Normal, ESR 24 H 04/13/22 21:15: Sodium 138, Potassium 3.6, Chloride 101, Carbon Dioxide 25, Anion Gap 15.6 H, BUN 6 L, Creatinine 0.60, Estimated Creat Clear 132, Estimated GFR 117, Est GFR ( Amer) 141, Glucose 119 H, Calcium 9.2, Total Bilirubin 0.2, AST 21, ALT 32, Alkaline Phospha
[2022-04-13 22:00] LABS: Erythrocyte Sedimentation Rate 24 mm/hr (0-20)
[2022-04-13 22:02] LABS: Basophils # 0.1 K/mm3 (0-0.2); Basophils % 0.4 % (0.1-2.0); Eosinophils # 0.1 K/mm3 (0.0-0.4); Eosinophils % 0.8 % (0.1-12.0); Hemoglobin 13.5 g/dL (12.2-16.2); Lymphocytes # 1.7 K/mm3 (0.7-4.5); Lymphocytes % 9.6 % (10-50); Mean Corpuscular HGB Conc 36.5 g/dL (31.8-35.4); Mean Corpuscular Hemoglobin 30.6 pg (27.0-31.2); Mean Corpuscular Volume 83.8 fl (81-99); Mean Platelet Volume 8.3 fl (7.4-10.4); Monocytes # 0.6 K/mm3 (0.1-1.0); Monocytes % 3.3 % (1.7-9.3); Neutrophils # 14.8 K/mm3 (1.8-7.8); Neutrophils % 85.9 % (37.0-80.0); Platelet Count 296 K/mm3 (142-424); Red Blood Count 4.42 M/mm3 (4.20-5.40); Red Cell Distribution Width 14.3 % (11.5-17.5); White Blood Count 17.2 K/mm3 (4.8-10.8)
[2022-04-13 22:03] LABS: MANUAL DIFFERENTIAL MANUAL DIFFERENTIAL (MANUAL DIFF)
[2022-04-13 22:12] LABS: Lymphocytes % 8 % (10-50); Monocytes % 4 % (2-9); Neutrophils % 79 % (42-76); Platelet Estimate Normal; RBC Morphology Normal; Total Cells Counted 100; Toxic Granulation 1+
[2022-04-13 22:27] LABS: Coronavirus 19, PCR Not Detected (NotDetected); Influenza A, PCR Not Detected (NotDetected); Influenza B, PCR Not Detected (NotDetected)
[2022-04-13 22:51] VITALS: BMI 54.8
[2022-04-13 22:54] LABS: Hemoglobin A1C 5.6 % (4.0-6.0)
[2022-04-13 23:04] VITALS: BP 163/78; PULSE 110; RESP 18; TEMP 36.8; O2SAT 97
[2022-04-13 23:30] LABS: HCG Qualitative, Serum Negative (Negative)
--- NOTE | 2022-04-13 23:31 | PC.NURSE ---
PT ARRIVED TO FLOOR VIA WHEELCHAIR @ 2330.
--- NOTE | 2022-04-13 23:32 | EXP.HP ---
History of Present Illness *Admission Date: 04/13/22 *Reason for visit:: admit from wasp sting 2 weeks ago on buttucks. now in pain with skin rash *History of present illness: Pt is a 32 y/o woman with no PMHx other than obesity who came to the ED for cellulitis of her lower back for the last week. Patient reports being stung by a wasp just above her gluteal cleft 2 weeks ago. Cellulitis developed 1 week ago. This began as a tender rash that developed blisters which popped and spread. Now rash has spread to the left and is painful. The cluster of blisters/open sores in the middle of lower back is not painful but itches a lot. Pt denies fever. PFSH PFSH Medical History Anxiety Depression Hypertension Surgical History History of section History of cholecystectomy History of tonsillectomy History of tubal ligation Social History Smoking Status: Current every day smoker tobacco type: cigarettes packs per day: 1 second hand exposure: No alcohol intake: current counseling provided: none substance use type: denies use current occupational status: unemployed Travel in the last 8 weeks: None household members: children housing: house caffeine: Yes Review of Systems Constitutional Constitutional: Reports body ache(s), Reports fatigue and Reports lethargy Eyes Eyes: Reports system reviewed and no additional complaints, except as documented and Denies itchy eyes ENT Ears, Nose, Mouth, and Throat: Reports system reviewed and no additional complaints, except as documented, Denies throat swelling and Denies tongue swelling *Cardiovascular Cardiovascular: Reports system reviewed and no additional complaints, except as documented *Respiratory Respiratory: Reports system reviewed and no additional complaints, except as documented *Gastrointestinal Gastrointestinal: Reports system reviewed and no additional complaints, except as documented *Genitourinary Genitourinary: Reports system reviewed and no additional complaints, except as documented *Musculoskeletal Musculoskeletal: Reports back pain and Reports myalgias Integumentary/Breasts Skin/Breast: Reports acne (to face , that patient says has just started), Reports changing lesions, Reports dry skin, Reports erythema, Reports new lesions, Reports non-healing lesions, Reports skin pain and Reports sores Comments: large area on equal side of upper anal crease . now growing in size *Neurologic Neurologic: Reports system reviewed and no additional complaints, except as documented Psychiatric Psychiatric: Reports system reviewed and no additional complaints, except as documented Endocrine Endocrine: Reports as per HPI and Reports fatigue Hematologic/Lymphatic Hematologic/Lymphatic: Reports system reviewed and no additional complaints, except as documented and Reports as per HPI Allergic/Immunologic Allergic/Immunologic: Denies itchy eyes, Denies throat swelling and Denies tongue swelling Meds Home Medications and Allergies Home Medications Medication Instructions Recorded Confirmed Type No Known Home Medications 04/13/22 04/13/22 History New Prescriptions to Start Prescriptions: Allergies Allergy/AdvReac Type Severity Reaction Status Date / Time No Known Allergies Allergy Verified 12/31/21 11:33 Exam Data for Last 24 hours Vital signs and Labs for Last 24 Hours: Temp Pulse Resp BP Pulse Ox 98.2 F 110 H 18 163/78 H 98 04/13/22 23:04 04/13/22 23:04 04/13/22 23:04 04/13/22 23:04 04/13/22 18:27 Laboratory Results - last 24 hr 04/13/22 21:15: WBC 17.2 H, RBC 4.42, Hgb 13.5, Hct 37.0, MCV 83.8, MCH 30.6, MCHC 36.5 H, RDW 14.3, Plt Count 296, MPV 8.3, Neut % (Auto) 85.9 H, Lymph % (Auto) 9.6 L, [place] % (Auto) 3.3, Eos % (Auto) 0.8, Baso % (Auto) 0.4, Neut # (Auto) 14.8 H,
[2022-04-14] VITALS: BP 160/68; PULSE 90; RESP 16; TEMP 36.7; O2SAT 96
--- NOTE | 2022-04-14 01:37 | PC.NURSE ---
@ 0050 Pt complained of itching around neck and chest, redness noted. IV Vancomycin stopped and Hospitalist Jose Juan Lozano TELEVISION ANTENNA INSTALLER notified. New orders received for Benadryl 25 mg PO, and to hold Vancomycin.
--- NOTE | 2022-04-14 04:25 | PC.NURSE ---
DRY SCALY LESIONS NOTED TO BUTTOCKS REDNESS/ WARMTH NOTED TO LEFT HIP RIGHT ARMPIT BACK OF RIGHT THIGH OPEN AREA NOTED TO COCCYX
[2022-04-14 08:00] VITALS: BP 141/86; PULSE 84; RESP 14; TEMP 36.6; O2SAT 98
--- NOTE | 2022-04-14 08:02 | EXP.PHA.CONS ---
Pharmacy Consult Date: 04/14/22 Time: 08:02 Referring provider: DR. LANIER Reason for Consult:: VANCOMYCIN DOSING Allergies Allergy/AdvReac Type Severity Reaction Status Date / Time No Known Allergies Allergy Verified 12/31/21 11:33 Home Medications Medication Instructions Recorded Confirmed Type No Known Home Medications 04/13/22 04/13/22 History New Prescriptions to Start Prescriptions: Height: 1.7 m Weight: 158.485 kg Laboratory Results:: Laboratory Results - last 24 hr 04/13/22 21:15: WBC 17.2 H, RBC 4.42, Hgb 13.5, Hct 37.0, MCV 83.8, MCH 30.6, MCHC 36.5 H, RDW 14.3, Plt Count 296, MPV 8.3, Neut % (Auto) 85.9 H, Lymph % (Auto) 9.6 L, [place] % (Auto) 3.3, Eos % (Auto) 0.8, Baso % (Auto) 0.4, Neut # (Auto) 14.8 H, Lymph # (Auto) 1.7, [place] # (Auto) 0.6, Eos # (Auto) 0.1, Baso # (Auto) 0.1, Total Counted 100, Neutrophils % (Manual) 79 H, Band Neutrophils % 9.0 H, Lymphocytes % (Manual) 8 L, Monocytes % (Manual) 4, Toxic Granulation 1+, Platelet Estimate Normal, RBC Morphology Normal, ESR 24 H 04/13/22 21:15: Sodium 138, Potassium 3.6, Chloride 101, Carbon Dioxide 25, Anion Gap 15.6 H, BUN 6 L, Creatinine 0.60, Estimated Creat Clear 132, Estimated GFR 117, Est GFR ( Amer) 141, Glucose 119 H, Calcium 9.2, Total Bilirubin 0.2, AST 21, ALT 32, Alkaline Phosphatase 126, C-Reactive Protein 53.5 H, Total Protein 8.0, Albumin 4.2, Globulin 3.8 H, Albumin/Globulin Ratio 1.1 04/13/22 21:15: Lactate 0.8 04/13/22 21:15: Hemoglobin A1c 5.6 04/13/22 21:15: Serum HCG, Qual Negative 04/13/22 22:21: SARS-CoV-2 (PCR) Not detected, Influenza A Untype (PCR) Not detected, Influenza Type B (PCR) Not detected Medical History: Medical History (Updated 04/14/22 @ 00:28 by Dima Jimenez APRN) Anxiety Depression Hypertension Assessment and Plan Assessment and plan all Dx Assessment and Plan for all problems:: Pharmacokinetic dosing service Objective: Patient: Floor: Age: 32 yo Serum creatinine: 0.60 mg/dL Height: 66.9 Inches Weight (kg): 158.5 Assessment: IBW (kg): 61.37 Dosing wt(kg): 158.5 Estimated Creatinine clearance (ml/min): 130 Clearance limited to 130 ml/min to reduce risk of overdosing. CRCL method: Cockcroft and Gault using ibw(default). Drug selected: Vancomycin Loading dose (mg): Vd (liters): 118.9 (factor used: 0.75 L/kg) Jimmie (hr-1): 0.112 Half life (hrs): 6.19 CLvanco=?? 13.317 L/hr Recommended dose: 2500 mg Interval: 8 hrs Infusion time (hrs): 2.0 Predicted peak (mcg/mL): 31.8 Predicted trough (mcg/mL): 16.24 Total body weight is being used for vancomycin dosing. Recommendations: Give Vancomycin 2500 mg q 8 hrs with an expected Cpeak of 31.8 mcg/ml and an expected Ctrough of 16.24 mcg/ml AUC 0-24 /ZOË Data: ZOË 0.5 mcg/mL:?? AUC/ZOË:? 1126.4 ZOË 1.0 mcg/mL:?? AUC/ZOË:? 563.2 --------- ZOË 1.5 mcg/mL:?? AUC/ZOË:? 375.5 ZOË 2.0 mcg/mL:?? AUC/ZOË:? 281.6 Thank you for the consult, will continue to follow. -ZAFAR MITCHELL, PHARMD
[2022-04-14 08:43] LABS: Basophils % 0.3 % (0.1-2.0); Eosinophils # 0.2 K/mm3 (0.0-0.4); Eosinophils % 1.5 % (0.1-12.0); Hematocrit 39.1 % (37.0-47.0); Hemoglobin 12.5 g/dL (12.2-16.2); Lymphocytes # 1.4 K/mm3 (0.7-4.5); Lymphocytes % 10.3 % (10-50); Mean Corpuscular Hemoglobin 26.9 pg (27.0-31.2); Mean Corpuscular Volume 84.1 fl (81-99); Mean Platelet Volume 8.7 fl (7.4-10.4); Monocytes # 0.6 K/mm3 (0.1-1.0); Monocytes % 4.7 % (1.7-9.3); Neutrophils # 11.4 K/mm3 (1.8-7.8); Neutrophils % 83.2 % (37.0-80.0); Platelet Count 281 K/mm3 (142-424); Red Blood Count 4.65 M/mm3 (4.20-5.40); Red Cell Distribution Width 14.4 % (11.5-17.5); White Blood Count 13.7 K/mm3 (4.8-10.8)
[2022-04-14 08:55] LABS: Alanine Aminotransferase 27 U/L (12-78); Albumin Level 3.8 g/dl (3.5-5.0); Albumin/Globulin Ratio 1.1 (1.1-1.8); Alkaline Phosphatase 110 U/L (38-126); Anion Gap 15.4 mEq/L (5-15); Aspartate Amino Transferase 19 U/L (14-36); Bilirubin,Total 0.3 mg/dl (0.2-1.3); Blood Urea Nitrogen 5 mg/dl (7-17); Calcium 8.7 mg/dl (8.4-10.2); Carbon Dioxide 27 mmol/L (22.0-30.0); Chloride 101 mmol/L (98-107); Creatinine Clearance Estimated 127 mL/min (50-200); Estimated Glomerular Filt Rate 117 ml/min (>60); GFR (African American) 141 ML/MIN (>60); Globulin 3.6 g/dL (1.3-3.2); Glucose 100 mg/dl (74-100); Potassium 3.4 mmoL/L (3.5-5.1); Sodium 140 mmol/L (136-145); Total Protein,Serum 7.4 g/dl (6.3-8.2)
--- NOTE | 2022-04-14 10:03 | EXP.DC.SUM ---
General Admission date:: 04/13/22 Discharge date: 04/14/22 HPI HPI HPI: Pt is a 32 y/o woman with no PMHx other than obesity who came to the ED for cellulitis of her lower back for the last week. Patient reports being stung by a wasp just above her gluteal cleft 2 weeks ago. Cellulitis developed 1 week ago. This began as a tender rash that developed blisters which popped and spread. Now rash has spread to the left and is painful. The cluster of blisters/open sores in the middle of lower back is not painful but itches a lot. Pt denies fever. Hospital Course Hospital Course Hospital Course: Patient was admitted for cellulitis of the lower back/just above the gluteal cleft. Cellulitis is concerning for Staph scalded skin syndrome, although in my opinion this is less likely as Nikolsky sign is negative, the vesicles themselves are nontender, and this is not on a flexor surface. To me this appears like a cluster of folliculitis, and she does endorse a history of boils in her axilla previously. In setting of her morbid obesity hidradenitis suppurativa of the axilla is very possible. Her current cellulitis may be MRSA, a wound culture is obtained and is pending at this time. Patient was initially treated with vancomycin, however because she developed warmth in her chest that spread out over her body this was stopped after she received about 90% of her dosage. She was given a dose of oral doxycycline last night. This morning I gave her a dose of clindamycin IV and she will be discharged on Bactrim p.o. as well as Hibiclens skin wash. Leukocytosis improved from 17.2-13.7, vitals are stable, patient is discharged home and urged to follow-up with PCP and/or return to the ER if wound does not heal or other complications or symptoms develop. Exam Data for Last 24 hours Vital signs and Labs for Last 24 Hours: Temp Pulse Resp BP Pulse Ox 97.8 F 84 14 141/86 H 98 04/14/22 08:00 04/14/22 08:00 04/14/22 08:00 04/14/22 08:00 04/14/22 08:00 Laboratory Results - last 24 hr 04/13/22 21:15: WBC 17.2 H, RBC 4.42, Hgb 13.5, Hct 37.0, MCV 83.8, MCH 30.6, MCHC 36.5 H, RDW 14.3, Plt Count 296, MPV 8.3, Neut % (Auto) 85.9 H, Lymph % (Auto) 9.6 L, Waller % (Auto) 3.3, Eos % (Auto) 0.8, Baso % (Auto) 0.4, Neut # (Auto) 14.8 H, Lymph # (Auto) 1.7, Waller # (Auto) 0.6, Eos # (Auto) 0.1, Baso # (Auto) 0.1, Total Counted 100, Neutrophils % (Manual) 79 H, Band Neutrophils % 9.0 H, Lymphocytes % (Manual) 8 L, Monocytes % (Manual) 4, Toxic Granulation 1+, Platelet Estimate Normal, RBC Morphology Normal, ESR 24 H 04/13/22 21:15: Sodium 138, Potassium 3.6, Chloride 101, Carbon Dioxide 25, Anion Gap 15.6 H, BUN 6 L, Creatinine 0.60, Estimated Creat Clear 132, Estimated GFR 117, Est GFR ( Amer) 141, Glucose 119 H, Calcium 9.2, Total Bilirubin 0.2, AST 21, ALT 32, Alkaline Phosphatase 126, C-Reactive Protein 53.5 H, Total Protein 8.0, Albumin 4.2, Globulin 3.8 H, Albumin/Globulin Ratio 1.1 04/13/22 21:15: Lactate 0.8 04/13/22 21:15: Hemoglobin A1c 5.6 04/13/22 21:15: Serum HCG, Qual Negative 04/13/22 22:21: SARS-CoV-2 (PCR) Not detected, Influenza A Untype (PCR) Not detected, Influenza Type B (PCR) Not detected 04/14/22 08:32: WBC 13.7 H, RBC 4.65, Hgb 12.5, Hct 39.1, MCV 84.1, MCH 26.9 L, MCHC 32.0, RDW 14.4, Plt Count 281, MPV 8.7, Neut % (Auto) 83.2 H, Lymph % (Auto) 10.3, Waller % (Auto) 4.7, Eos % (Auto) 1.5, Baso % (Auto) 0.3, Neut # (Auto) 11.4 H, Lymph # (Auto) 1.4, Waller # (Auto) 0.6, Eos # (Auto) 0.2, Baso # (Auto) 0.0 04/14/22 08:32: Sodium 140, Potassium 3.4 L, Chloride 101, Carbon Dioxide 27, Anion Gap 15.4 H, BUN 5 L, Creatinine 0.60, Estimated Creat Clear 127, Estimated GFR 117, Est GFR ( Amer) 141, Glucose 100, Calcium 8.7, Total Bilirubin 0.3, AST 19, ALT 27, Alkaline Phosphatase 110, Total Protein 7.4, Albumin 3.8, Globulin 3.6 H, Albumin/Globulin Ratio 1.1 I & O for Last 24 hours: Intake & Output 04/11/22 04/12/22 04/13/22 04/14/22 23:59 23:5
--- NOTE | 2022-04-14 11:55 | PC.NURSE ---
pt has been discahqrged from the unit. took all of her belongings with her and voiced understanding of all discahrge education and follow up appts. wound is clean and dry. educated pt on wound care. Saline lock discontinued
--- NOTE | 2022-04-15 12:40 | CARE MANAGER ---
Spoke with patient related to hospital discharge. Shes states she is doing better. She had the ointment she needed but was picking up her other prescriptions today. She isn't able to see her MD until towards the end of the month. She denies any questions or concerns.
== END 2022-04-14 11:35 | disposition home or self-care (01) ==
LOC: ER 22:35 → 2ND 22:38
PROVIDERS: Emergency Medicine; Admitting Provider Nurse Practitioner Family; Emergency Provider Emergency Medicine; PCP Family Medicine Sports Medicine; Visit Provider Nurse Practitioner Family
DX: L00 Staphylococcal scalded skin syndrome (principal); Z23 Encounter for immunization; L03.317 Cellulitis of buttock; B95.7 Other staphylococcus as the cause of diseases classified elsewhere; T36.8X5A Adverse effect of other systemic antibiotics, initial encounter; Y92.230 Patient room in hospital as the place of occurrence of the external cause; L08.9 Local infection of the skin and subcutaneous tissue, unspecified; D72.829 Elevated white blood cell count, unspecified
CPT/HCPCS: 36415; 80053; 83036; 83605; 84703; 85007; 85025; 85651; 86140; 87040; 87070; 87077; 87186; 87205; 90714; 99285; C9803; G0378; J3370; U0003; U0005

== ENCOUNTER 2022-11-02 09:16 | Outpatient (CLI) | payer MEDICAID, SELFPAY ==
[2022-11-02 10:24] VITALS: BMI 44.4
== END 2022-11-02 10:26 | disposition home or self-care (01) ==
PROVIDERS: PCP Family Medicine; Visit Provider Nurse Practitioner Family
DX: Z11.1 Encounter for screening for respiratory tuberculosis (principal)
CPT/HCPCS: 86580

== ENCOUNTER 2022-11-19 08:30 | Emergency (ER) | payer MEDICAID, SELFPAY ==
[2022-11-19 08:31] VITALS: BP 143/88; PULSE 85; RESP 18; TEMP 36.8; O2SAT 96; BMI 64.3
--- NOTE | 2022-11-19 08:57 | EXP.UTC ---
Discharge Plan Disposition Patient Disposition: Home, Self-Care Condition: Good Prescriptions Prescriptions: New azithromycin [Zithromax Z-Kit] 250 mg tablet See Rx Instructions .ROUTE .COMPLEX 5 Days Qty: 6 0RF Rx Instructions: For 250 mg dose pack: take 500 mg today (day 1), then 250 mg for 4 days (days 2-5) prednisone [prednisone] 20 mg tablet 20 mg PO BID 5 Days Qty: 10 0RF benzonatate 100 mg capsule 100 mg PO TID PRN (Reason: cough) Qty: 30 0RF ondansetron 4 mg Tablet,Disintegrating 4 mg PO Q8H PRN (Reason: Nausea) Qty: 20 0RF guaifenesin [Mucinex] 600 mg tablet extended release 12hr 1,200 mg PO BID PRN (Reason: cough/congestion) Qty: 20 0RF albuterol sulfate [Proventil HFA] 90 mcg/actuation HFA aerosol inhaler 1 - 2 inh inhalation Q6H PRN (Reason: shortness of breath or wheezing) Qty: 8.5 0RF No Action mupirocin 2 % Ointment 1 applic topical BID Qty: 22 0RF chlorhexidine gluconate [Hibiclens] 4 % liquid 1 applic topical BID 7 Days Qty: 473 0RF sulfamethoxazole-trimethoprim [Bactrim DS] 800-160 mg tablet 1 tab PO BID 7 Days Qty: 14 0RF Referrals Follow up/Referrals: Shanon Mcgee MD [Primary Care Provider] - See instructions Activity Restrictions/Add. Instructions Additional Instructions/Restrictions: Start antibiotic today. Be sure to complete entire prescription even if feeling better Monitor temp. Tylenol every 4 hours as needed and / or ibuprofen every 6 hours as needed ( As long as your primary care physician has told you that it ok to take both. For fever/aches/pains ER if no less than 101 despite Tylenol or Motrin Humidifier/vaporizer or hot steamy shower Inhaler every 4-6 hours as needed like we discussed. If unsure how to use it, ask pharmacist to demonstrate how. Should help open airways and improve cough, wheezing, and shortness of breath Mucinex during the day for your cough and cough suppressant only at night. Be sure to drink lots of water. *Tessalon Perles will not cause drowsiness but use at bedtime to help stop cough so that you may get some rest. *Start steroid today. Helps with inflammation therefore, cough and wheezing. Follow directions on the package. Reviewed side effects. Patient reports taking them before. Follow up IMMEDIATELY for new or worsening of symptoms OR no noticeable improvement over the next 48-72 hours. 911 immediately for any life threatening symptoms such as chest pain or difficulty breathing Clinical Impressions Clinical Impression: Sinusitis, Bronchitis Instructions Patient Instructions: DI for Sinusitis, Sinus Headache, Acute Bronchitis, DI for Vomiting -- Adult Discharge ED Provider: Emilie Calderon [facility] [place] HPI General Stated complaint: Nausea vomiting chills fever headache lung pain Mode of Arrival: Ambulatory Source of Information: Patient Limitations: No Limitations Time Seen by Provider: 11/19/22 08:57 Description of Symptoms (Recalled from Triage Doc. by RN): Patient complaint of on and off fever, chills, cold sweats, vomiting, mirgraine, lung pain for 3 days now. HEENT Symptoms (Recalled from RN notes): No Resp Symptoms (Recalled from RN notes): Yes Skin Symptoms (Recalled from RN notes): No MS Symptoms (Recalled from RN notes): No Functional Status (Recalled from RN notes): wnl History of Present Illness Provider Complaint: Patient states that she has been having sinus pain and pressure with drainage States that she has been having fever on and off, pain in her lungs with deep breaths and this morning she had some nausea States that she has a history of migraines and she has had one on and off States that today she was still not feeling any better so she came in to get checked Related Data Previous Rx's Medication Instructions Recorded chlorhexidine gluconate 4 % 1 applic topical BID 1 week #473 mL 04/14/22 topical liquid (Hibiclens) mupirocin 2 % topical ointmen
[2022-11-19 09:10] VITALS: BP 143/88; PULSE 85; RESP 18; TEMP 36.8; O2SAT 96
== END 2022-11-19 09:10 | disposition home or self-care (01) ==
PROVIDERS: Emergency Provider Nurse Practitioner; PCP Family Medicine
DX: J20.9 Acute bronchitis, unspecified (principal); J01.90 Acute sinusitis, unspecified; R50.9 Fever, unspecified; R11.0 Nausea; F17.210 Nicotine dependence, cigarettes, uncomplicated; I10 Essential (primary) hypertension; F41.9 Anxiety disorder, unspecified; F32.A Depression, unspecified
CPT/HCPCS: 99212; 99214; G0463

== ENCOUNTER → 2023-01-21 16:47 | Outpatient (CLI) | payer MEDICAID, SELFPAY ==
[2023-01-21 17:31] LABS: Basophils % 0.3 % (0.1-2.0); Eosinophils # 0.2 K/mm3 (0.0-0.4); Eosinophils % 1.8 % (0.1-12.0); Hematocrit 40.6 % (37.0-47.0); Hemoglobin 13.1 g/dL (12.2-16.2); Lymphocytes # 2.4 K/mm3 (0.7-4.5); Lymphocytes % 20.6 % (10-50); Mean Corpuscular HGB Conc 32.2 g/dL (31.8-35.4); Mean Corpuscular Hemoglobin 27.5 pg (27.0-31.2); Mean Corpuscular Volume 85.6 fl (81-99); Mean Platelet Volume 8.3 fl (7.4-10.4); Monocytes # 0.4 K/mm3 (0.1-1.0); Monocytes % 3.2 % (1.7-9.3); Neutrophils # 8.7 K/mm3 (1.8-7.8); Platelet Count 255 K/mm3 (142-424); Red Blood Count 4.74 M/mm3 (4.20-5.40); Red Cell Distribution Width 14.3 % (11.5-17.5); White Blood Count 11.8 K/mm3 (4.8-10.8)
[2023-01-21 18:06] LABS: Chloride 104 mmol/L (98-107); Potassium 3.9 mmoL/L (3.5-5.1); Sodium 141 mmol/L (136-145)
[2023-01-21 18:08] LABS: Alanine Aminotransferase 30 U/L (12-78); Aspartate Amino Transferase 27 U/L (14-36); Blood Urea Nitrogen 7 mg/dl (7-17); Estimated Glomerular Filt Rate 98 ml/min (>60); GFR (African American) 118 ML/MIN (>60)
[2023-01-21 18:09] LABS: Albumin Level 3.8 g/dl (3.5-5.0); Albumin/Globulin Ratio 1.2 (1.1-1.8); Alkaline Phosphatase 108 U/L (38-126); Anion Gap 11.9 mEq/L (5-15); Bilirubin,Total 0.2 mg/dl (0.2-1.3); Calcium 9.2 mg/dl (8.4-10.2); Carbon Dioxide 29 mmol/L (22.0-30.0); Globulin 3.3 g/dL (1.3-3.2); Glucose 87 mg/dl (74-100); Total Protein,Serum 7.1 g/dl (6.3-8.2)
== END ==
PROVIDERS: PCP Family Medicine; Visit Provider Nurse Practitioner Obstetrics & Gynecology
DX: N93.9 Abnormal uterine and vaginal bleeding, unspecified (principal)
CPT/HCPCS: 36415; 80053; 85025

== ENCOUNTER → 2023-01-29 12:56 | Outpatient (CLI) | payer MEDICAID, SELFPAY ==
--- NOTE | 2023-01-29 12:56 | US_ITS ---
PROCEDURE: US TRANSVAGINAL CLINICAL INDICATION: heavy bleeding COMPARISON: No exams were available for comparison FINDINGS: Transvaginal and transabdominal sonographic images of the pelvis were obtained. UTERUS: 9.1 cm x 4.7 cmx 4.0 cm with a combined endometrial thickness of 9.4mm. The endometrium has an irregular appearance adjacent to the uterus. There is an anterior fibroid that measures 2.7 cm x 1.3 cm x 2.1 cm. It appears to be submucosal. A scar is visible. LEFT OVARY: 3.4 cmx2.9 cmx2.4cm with a volume of 12.5ml. RIGHT OVARY: 4.7 cmx 3.9 cmx3.5 cm with a volume of 33.8ml. Seen transabdominally. There is a follicle measuring 3.4 cm x 3.3 cm x 2.6 cm. Both ovaries are seen and appear normal. Doppler flow to both ovaries are seen. There is no fluid in the cul-de-sac. IMPRESSION: 1. Bulky anteverted uterus upper limits of normal size. 2. The endometrium appears normal but adjacent to the myometrium it has an irregular appearance. 3. Both ovaries are seen and appear normal. 4. There is no fluid in the cul-de-sac. Dictated by: Elia Massey MD 01/29/2023 17:51 Elia Massey MD in OV 01/29/2023 17:51
== END ==
PROVIDERS: PCP Family Medicine; Visit Provider Nurse Practitioner Obstetrics & Gynecology
DX: N93.9 Abnormal uterine and vaginal bleeding, unspecified (principal)
CPT/HCPCS: 76830

== ENCOUNTER → 2023-02-04 09:43 | Outpatient (CLI) | payer MEDICAID, SELFPAY ==
[2023-02-04 10:21] LABS: Basophils % 0.2 % (0.1-2.0); Eosinophils # 0.3 K/mm3 (0.0-0.4); Eosinophils % 2.5 % (0.1-12.0); Hematocrit 37.9 % (37.0-47.0); Hemoglobin 12.3 g/dL (12.2-16.2); Lymphocytes # 2.5 K/mm3 (0.7-4.5); Lymphocytes % 22.1 % (10-50); Mean Corpuscular HGB Conc 32.5 g/dL (31.8-35.4); Mean Corpuscular Volume 86.1 fl (81-99); Mean Platelet Volume 8.9 fl (7.4-10.4); Monocytes # 0.4 K/mm3 (0.1-1.0); Monocytes % 3.3 % (1.7-9.3); Neutrophils % 71.9 % (37.0-80.0); Platelet Count 285 K/mm3 (142-424); Red Cell Distribution Width 14.3 % (11.5-17.5); White Blood Count 11.1 K/mm3 (4.8-10.8)
[2023-02-04 10:52] LABS: Chloride 106 mmol/L (98-107); Sodium 142 mmol/L (136-145)
[2023-02-04 10:54] LABS: Alanine Aminotransferase 28 U/L (12-78); Aspartate Amino Transferase 25 U/L (14-36); Blood Urea Nitrogen 9 mg/dl (7-17); Estimated Glomerular Filt Rate 116 ml/min (>60); GFR (African American) 140 ML/MIN (>60)
[2023-02-04 10:55] LABS: Albumin Level 3.5 g/dl (3.5-5.0); Albumin/Globulin Ratio 1.1 (1.1-1.8); Alkaline Phosphatase 94 U/L (38-126); Bilirubin,Total 0.2 mg/dl (0.2-1.3); Calcium 8.9 mg/dl (8.4-10.2); Carbon Dioxide 27 mmol/L (22.0-30.0); Globulin 3.3 g/dL (1.3-3.2); Glucose 117 mg/dl (74-100); Total Protein,Serum 6.8 g/dl (6.3-8.2)
[2023-02-04 11:17] LABS: HCG,Quantitative < 2 mIU/ml (0-5.42)
== END ==
PROVIDERS: PCP Family Medicine; Visit Provider Nurse Practitioner Obstetrics & Gynecology
DX: Z01.812 Encounter for preprocedural laboratory examination (principal); N92.0 Excessive and frequent menstruation with regular cycle
CPT/HCPCS: 36415; 80053; 84702; 85025

== ENCOUNTER 2023-02-05 07:52 | Day surgery (SDC) | payer MEDICAID, SELFPAY ==
[2023-02-05] VITALS (11 sets, daily range): BP systolic 105–169; BP diastolic 62–97; PULSE 74–83; RESP 10–26; TEMP 36.1–36.2; O2SAT 26–99; BMI 57.6
--- NOTE | 2023-02-05 09:47 | EXP.ANES.CKL ---
[facility] Disclaimer: The information contained in this section may have been updated after the patient was seen, as this information can be updated by other users. Medical History Anxiety Depression Hypertension Surgical History History of section History of cholecystectomy History of tonsillectomy History of tubal ligation Family History (Updated 02/05/23 @ 08:50 by Norbert Aleman RN) Other Family history of diabetes mellitus type II Social History (Updated 02/05/23 @ 08:50 by Norbert Aleman RN) Smoking Status: Current every day smoker tobacco type: cigarettes packs per day: 1 second hand exposure: No alcohol intake: never counseling provided: none substance use type: denies use current occupational status: unemployed Travel in the last 8 weeks: None household members: children housing: house caffeine: Yes [facility] Anesthesia Checklist Patient Identification Patient Identification: Arm Band Structural Data Admitted From: Home Planned Operative Procedure/s: Hysteroscopy, D&C, Novasure Ablation Consent for Planned Operative Procedure(s) Verified: Yes Verified Documents: Surgical Consent and History and Physical Additional verifications Anesthesia Reactions: No Hx Blood Transfusions: No Blood Transfusion Reaction: No Airway Assessment Mallampati Score:: Class II C-Spine Mobility Assessed: Yes TMJ Mobility Assessed: Yes Dentition: Good Dentition Neurological Assessment Level of Consciousness: Awake and Alert Anesthesia Plan Anesthesia Risk discussed: Yes Anesthesia Plan: Verified ASA Class: III Anesthesia Type: General
--- NOTE | 2023-02-05 10:56 | P.PNANES_ITS ---
[facility] Anesthesia Record Part I Anesthesia Record I Intake, IV Amount: 750 Hydration: Adequate Estimated blood loss (mL): 20 Urine output (mL): 0 Blood Products used (#): none Blood Pressure: 105/62 SaO2: 26 Pulse Rate: 81 Airway Patency: Patent Respiratory Rate: 26 Temperature: 97 F Patient is:: Drowsy and Stable Stable to PACU at:: 10:45
--- NOTE | 2023-02-05 10:59 | P.OP_ITS ---
Date of procedure: 02/05/23 Pre-op Diagnosis:: Menorrhagia, fibroid uterus Post-op Diagnosis:: Menorrhagia uterine fibroids Procedure performed:: Hysteroscopy, dilation and curettage Surgeon:: Elia Massey MD [employer] OPERATOR:: Other (Donato Ritchie) Anesthesia: LMA Estimated blood loss (mL): 50 Clinical Note:: She is a 33-year-old 2 para 2 lady who complains of extremely heavy periods. She says she is passing clots the size of her fist. Ultrasound showed a small fibroid in the uterus. After having discussed the risks and benefits we elected perform a hysteroscopy, D&C and NovaSure ablation. Operative findings:: MetrorrhagiaShe had an anteverted anteflexed uterus. The endometrium appeared lush but otherwise normal. The tubal ostia were seen. The uterus sounded to 9 cm. Operative note:: She was taken to the operating room where LMA anesthesia was found be adequate. She was prepped and draped in the normal sterile fashion in the lithotomy position. A weighted speculum was placed in the vagina and the anterior lip of the cervix was grasped with a tenaculum. The cervix was then dilated to approximately 6 mm. I then inserted a hysteroscope into the uterine cavity and the findings were as previously dictated. I then performed a gentle curettage with a medium curette. I then sounded the uterus and determine the length of the uterus. It was found to be 9 cm. I then inserted the NovaSure device into the uterine cavity and I could not get it to open properly. I then reinspected the uterine cavity and a perforation at the fundus was found. As result of that I elected to abandon the procedure. I then injected 30 cc of 0.5% ropivacaine at the 3:00, 5:00, 7:00, and 9:00 positions of the cervix. She tolerated procedure well and was taken to the recovery room in excellent condition. All sponge and instrument counts were correct. The estimated blood loss was less than 50 cc. Condition: stable Disposition: PACU Specimens:: Endometrial curettings Complications:: Uterine perforation at the fundus.
[2023-02-07 07:50] VITALS: BP 168/83; PULSE 76; RESP 16; TEMP 36.2; O2SAT 98
--- NOTE | 2023-02-07 07:50 | EXP.ANES.II ---
[facility] Anesthesia Record Part II Anesthesia Record Part II Discharge Time: 11:30 Destination: Surgical Day Care (OP Surgery) PACU nurse assessment reviewed?: Yes Patient Condition:: Good Anesthesia Complications:: None Swallowing reflex intact?: Yes Airway Patency: Patent Cyanosis?: No Blood Pressure: 168/83 SaO2: 98 Respiratory Rate: 16 Pulse Rate: 76 Temperature: 97.2 F Mental Status: Alert & Oriented Pain level:: 3 Nausea and/or vomitting:: None Intake, IV Amount: 0 Hydration: Adequate
== END 2023-02-05 12:01 | disposition home or self-care (01) ==
PROVIDERS: PCP Family Medicine; Visit Provider Nurse Practitioner Obstetrics & Gynecology
PROC: 0U5B8ZZ Destruction of Endometrium, Via Natural or Artificial Opening Endoscopic (ICD-10-PCS; CPT 58563; principal; 2023-02-05 10:15)
DX: N92.0 Excessive and frequent menstruation with regular cycle (principal); T38.5X5A Adverse effect of other estrogens and progestogens, initial encounter; D25.9 Leiomyoma of uterus, unspecified
CPT/HCPCS: 58563; 96374; J2405

== ENCOUNTER 2023-05-11 13:16 | Emergency (ER) | payer MEDICAID, SELFPAY ==
[2023-05-11 13:50] VITALS: BP 138/88; PULSE 89; RESP 18; TEMP 36.8; O2SAT 99; BMI 59.5
--- NOTE | 2023-05-11 14:08 | EXP.UTC ---
Discharge Plan Disposition Patient Disposition: Home, Self-Care Condition: Good Prescriptions Prescriptions: New penicillin V potassium 500 mg tablet 500 mg PO BID Qty: 20 0RF ondansetron 4 mg tablet,disintegrating 4 mg PO Q8H PRN (Reason: nausea and vomiting) Qty: 10 0RF No Action Vraylar 1.5 mg capsule 1.5 mg PO DAILY Patient Comments: TAKE 1 CAPSULE BY MOUTH EVERY MORNING Referrals Follow up/Referrals: Shanon Mcgee MD [Primary Care Provider] - See instructions Activity Restrictions/Add. Instructions Additional Instructions/Restrictions: *Nasal saline and bulb syringe or nose alessandro to remove nasal drainage and help with nasal congestion. Hard to eat, drink, or sleep with nasal congestion so important to keep nose cleaned out. *Monitor Temp, Over the counter Motrin or Tylenol as directed/as needed Tylenol every 4 hours and Motrin every 6 hours (as long as your family doctor has told you that you can take it) for fever or pain. and straight to ER if unable to lower temp less than 101.0 after medication given *Warm salt water gargles may help to soothe the throat *Throat Lozenges? *Warm fluids like tea with honey may help to soothe the throat? *Sleep elevated *Humidifier/Vaporizer *If you did not take Penicillin shot or was unable to, start taking antibiotic immediately and make sure that you take it for the FULL length of time although you should start to feel better in 24-48 hours *change toothbrush and toothpaste 24-48 hours after starting to take antibiotics so you do not reinfect yourself Monitor Temp. Tylenol and/or Ibuprofen as needed. ER if fever is no less than 101 despite alternating Tylenol and Ibuprofen * Encourage fluids, water, Gatorade, powerade, pedialyte if infant/toddler/or child *Cold fluids, popsicles and ice cream may feel good on his throat Follow up IMMEDIATELY for new or worsening symptoms or no Noticeable improvement over the next 48-72 hours. 911 for difficulty breathing or swallowing Clinical Impressions Clinical Impression: Strep throat Stand Alone Forms Stand Alone Forms: Work/School Release Instructions Patient Instructions: DI for Strep Throat, Strep Throat Discharge ED Provider: Emilie Calderon [facility] HPI General Stated complaint: [place], soa, cough, nausea fever Mode of Arrival: Ambulatory Source of Information: Patient Limitations: No Limitations Time Seen by Provider: 05/11/23 14:08 Description of Symptoms (Recalled from Triage Doc. by RN): PATIENT C/O HEADACHE, COUGH, SORE THROAT, WEAKNESS AND NAUSEA SINCE LAST NIGHT HEENT Symptoms (Recalled from RN notes): Yes Resp Symptoms (Recalled from RN notes): Yes Skin Symptoms (Recalled from RN notes): No MS Symptoms (Recalled from RN notes): No Functional Status (Recalled from RN notes): WNL History of Present Illness Provider Complaint: Patient states that she thinks she may have what her coworker had last week unsure of what it was States that she started feeling bad last night with body aches, chills, headache sore throat and nausea States that today she wasnt feeling any better so she came in to get tested for strep flu and COVID Related Data Home Medications Medication Instructions Recorded Confirmed cariprazine 1.5 mg capsule 1.5 mg PO DAILY 05/11/23 05/11/23 (Vraylar) Previous Rx's Medication Instructions Recorded ondansetron 4 mg disintegrating 4 mg PO Q8H PRN nausea and 05/11/23 tablet vomiting #10 tabs penicillin V potassium 500 mg 500 mg PO BID #20 tabs 05/11/23 tablet Allergies Allergy/AdvReac Type Severity Reaction Status Date / Time No Known Allergies Allergy Verified 02/05/23 08:48 Worker's Comp Is this a Worker's Comp case?: No [facility] Disclaimer: The information contained in this section may have been updated after the patient was seen, as this information can be updated by other users. Me
[2023-05-11 14:18] LABS: UTC Influenza A Antigen Negative (Negative); UTC Influenza B Antigen Negative (Negative)
[2023-05-11 14:19] LABS: UTC Strep Screen (Rapid) Positive (Negative)
[2023-05-11 14:22] VITALS: BP 138/88; PULSE 89; RESP 18; TEMP 36.8; O2SAT 99
== END 2023-05-11 14:27 | disposition home or self-care (01) ==
PROVIDERS: Emergency Provider Nurse Practitioner; PCP Family Medicine
DX: J02.0 Streptococcal pharyngitis (principal); R07.0 Pain in throat; R51.9 Headache, unspecified; R50.9 Fever, unspecified; R11.0 Nausea; R05.9 Cough, unspecified; R53.1 Weakness; F17.210 Nicotine dependence, cigarettes, uncomplicated; I10 Essential (primary) hypertension
CPT/HCPCS: 87804; 87880; 99212; 99214; G0463

== ENCOUNTER 2023-07-06 12:15 | Emergency (ER) | payer MEDICAID, SELFPAY ==
--- NOTE | 2023-07-06 12:56 | XR_ITS ---
PROCEDURE INFORMATION: Exam: XR Left Foot Exam date and time: 07/06/2023 12:59 PM Age: 33 years old Clinical indication: Pain; Foot; Left; Additional info: Lateral sided pain x 1 month TECHNIQUE: Imaging protocol: Radiologic exam of the left foot. Views: 3 or more views. COMPARISON: No relevant prior studies available. FINDINGS: Bones/joints: Normal. Soft tissues: Normal. IMPRESSION: No acute findings.
--- NOTE | 2023-07-06 12:56 | XR_ITS ---
PROCEDURE INFORMATION: Exam: XR Left Ankle Exam date and time: 07/06/2023 1:01 PM Age: 33 years old Clinical indication: Pain; Ankle; Left; Additional info: Lateral sided pain x 1 month TECHNIQUE: Imaging protocol: Radiologic exam of the left ankle. Views: 3 or more views. COMPARISON: CR Foot L 07/06/2023 12:59 PM FINDINGS: Bones/joints: The mortise joint space is symmetric. No visible fracture or dislocation. Soft tissues: Normal. IMPRESSION: No visible fracture or dislocation.
[2023-07-06 13:20] VITALS: BP 161/92; PULSE 81; RESP 18; TEMP 36.7; O2SAT 98; BMI 63.5
--- NOTE | 2023-07-06 13:29 | ED_ITS ---
Discharge Plan Disposition Patient Disposition: Home, Self-Care Condition: Good Prescriptions Prescriptions: No Action Vraylar 1.5 mg capsule 1.5 mg PO DAILY Patient Comments: TAKE 1 CAPSULE BY MOUTH EVERY MORNING penicillin V potassium 500 mg tablet 500 mg PO BID Qty: 20 0RF ondansetron 4 mg tablet,disintegrating 4 mg PO Q8H PRN (Reason: nausea and vomiting) Qty: 10 0RF Referrals Follow up/Referrals: Susan Whitmore APRN [Nurse Practitioner] - See instructions Shanon Mcgee MD [Primary Care Provider] - See instructions Hannah Venegas DPM [Staff Physician] - See instructions Activity Restrictions/Add. Instructions Additional Instructions/Restrictions: *weight bearing as tolerated *RICE, Rest the extremity, Ice 15-20 minutes 3-4 times daily, Compress- wear the louis wrap as discussed as much as possible to help reduce swelling and pain, Elevate the extremity when at rest *Louis wrap is for support and help control swelling, use it except in the shower. Be sure that is not to tight but not to loose either *Elevate when resting? *Ibuprofen 600-800mg every 6-8 hours as needed for pain an inflammation. If need something more can take Tylenol in between doses of Ibuprofen to help Immediately follow up with your family doctor for new or worsening of s ymptoms, or no noticeable improvement over the next 3-5 days Follow up with Podiatry if pain continues Clinical Impressions Clinical Impression: Ankle pain, left Qualifiers: Chronicity: unspecified Qualified Code(s): M25.572 - Pain in left ankle and joints of left foot Instructions Patient Instructions: How to Apply an Louis Wrap, DI for Ankle Pain, DI for Foot Pain Discharge ED Provider: Emilie Calderon [facility] General Stated complaint: left foot pain Time Seen by Provider: 07/06/23 13:29 History of Present Illness Provider Complaint: Patient states that she hurt her left ankle awhile back and was seen for it and they didnt find anything States that for the last couple of months the pain in the ankle and foot has returned and she has been rolling it often if she stands on it too long like it is getting week States that she has been taking OTC motrin and Tylenol but today it was still bothering her so she came in to get it checked again Related Data Home Medications Medication Instructions Recorded Confirmed cariprazine 1.5 mg capsule 1.5 mg PO DAILY 05/11/23 05/11/23 (Vraylar) Previous Rx's Medication Instructions Recorded ondansetron 4 mg disintegrating 4 mg PO Q8H PRN nausea and 05/11/23 tablet vomiting #10 tabs penicillin V potassium 500 mg 500 mg PO BID #20 tabs 05/11/23 tablet Allergies Allergy/AdvReac Type Severity Reaction Status Date / Time No Known Allergies Allergy Verified 02/05/23 08:48 [facility] Disclaimer: The information contained in this section may have been updated after the patient was seen, as this information can be updated by other users. Medical History Anxiety Depression Hypertension Surgical History History of section History of cholecystectomy History of tonsillectomy History of tubal ligation Family History (Updated 02/05/23 @ 08:50 by Norbert Aleman RN) Other Family history of diabetes mellitus type II Social History (Updated 02/05/23 @ 08:50 by Norbert Aleman RN) Smoking Status: Current every day smoker tobacco type: cigarettes packs per day: 1 second hand exposure: No alcohol intake: never counseling provided: none substance use type: denies use current occupational status: unemployed Travel in the last 8 weeks: None household members: children housing: house caffeine: Yes ROS Obtained: Yes All systems reviewed & no additional complaints except as documented and Yes Systems reviewed as appropriate & no additional complaints except as documented Constitutional Constitutional: Reports system reviewed and no additional complaints, except as documented and Reports as per HPI ENT Ears, Nose, Mouth, and Throat: Reports system reviewed and no additional complaints, except as documented and Reports as per HPI Cardiovascular Cardiovascular: Reports system reviewed and no additional complaints, except as documented and Reports as per HPI Respiratory Respiratory: Reports system reviewed and no additional complaints, except as documented and Reports as per HPI Gastrointestinal Gastrointestingal: Reports system reviewed and no additional complaints, except as documented and as per HPI Musculoskeletal Musculoskeletal: Reports system reviewed and no additional complaints, except as documented, Reports as per HPI and Reports other Comments: Pain and weakness in left ankle that at times feels like it gives out and she rolls her ankle Physical Exam General General appearance: alert and in no apparent distress ENT ENT exam: Present mucous membranes moist Respiratory Respiratory exam: Present normal lung sounds bilaterally; Absent respiratory distress or wheezes Cardiovascular Cardiovascular exam: Present regular rate, normal rhythm and normal heart sounds Expanded Lower Extremity Exam Left: Ankle exam: Present tenderness and swelling (on and off for several months); Absent ecchymosis, deformity, dislocation or erythema Foot/toe exam: Present tenderness and swelling (reports on and off); Absent ecchymosis, deformity, dislocation or erythema Gait: observed and normal Neurological Exam Neurological exam: Present alert, oriented X3 and normal gait Medical Decision Making Kenji Inquiry Pt receiving controlled substance: No Kenji was queried for this patient: No Orders (Tests/Meds): ORDERS Category Date Time Status XR ankle LT min 3V Stat Exams 07/06/23 12:56 Completed XR foot LT min 3V Stat Exams 07/06/23 12:56 Completed Radiology Data #1: Image(s): Foot/Toes Image Reviewed: Yes I have reviewed radiologist's interpretation FINDINGS: Bones/joints: Normal. Soft tissues: Normal. IMPRESSION: No acute findings. #2: Image(s): Ankle Image Reviewed: Yes I have reviewed radiologist's interpretation FINDINGS: Bones/joints: The mortise joint space is symmetric. No visible fracture or dislocation. Soft tissues: Normal. IMPRESSION: No visible fracture or dislocation.
[2023-07-06 13:55] VITALS: BP 161/92; PULSE 81; RESP 18; TEMP 36.7; O2SAT 98
== END 2023-07-06 13:58 | disposition home or self-care (01) ==
PROVIDERS: Emergency Provider Nurse Practitioner; PCP Family Medicine
DX: M25.572 Pain in left ankle and joints of left foot (principal); F17.210 Nicotine dependence, cigarettes, uncomplicated
CPT/HCPCS: 73610; 73630; 99212; 99214; G0463

== ENCOUNTER 2024-01-05 15:31 | Emergency (ER) | payer MEDICAID, SELFPAY ==
[2024-01-05 15:33] VITALS: BP 130/66; PULSE 86; RESP 17; TEMP 36.7; O2SAT 98; BMI 57.2
--- NOTE | 2024-01-05 16:29 | CT_ITS ---
PROCEDURE INFORMATION: Exam: CTA Abdomen and Pelvis With Contrast Exam date and time: 01/05/2024 5:39 PM Age: 33 years old Clinical indication: Abdominal pain; Generalized; Additional info: Abd pain, ugi bleed TECHNIQUE: Imaging protocol: Computed tomographic angiography of the abdomen and pelvis with contrast. Exam focused on the arteries. 3D rendering (Not supervised by radiologist): MIP and/or 3D reconstructed images were created by the technologist. Radiation optimization: All CT scans at this facility use at least one of these dose optimization techniques: automated exposure control; mA and/or kV adjustment per patient size (includes targeted exams where dose is matched to clinical indication); or iterative reconstruction. Contrast material: ISO 370; Contrast volume: 100 ml; Contrast route: INTRAVENOUS (IV); COMPARISON: No relevant prior studies available. FINDINGS: Aorta: No aortic aneurysm. No aortic dissection. Celiac trunk and mesenteric arteries: No occlusion or significant stenosis. Renal arteries: No occlusion or significant stenosis. Right iliac arteries: No occlusion or significant stenosis. Left iliac arteries: No occlusion or significant stenosis. Liver: No mass. Gallbladder and biliary ducts: The patient is status post cholecystectomy. Pancreas: Unremarkable. No mass. No ductal dilation. Spleen: Unremarkable. No splenomegaly. Adrenal glands: Unremarkable. No mass. Kidneys and ureters: Unremarkable. No solid mass. No hydronephrosis. Stomach and bowel: Unremarkable. No obstruction. No mucosal thickening. Appendix: No evidence of appendicitis. Intraperitoneal space: Unremarkable. No free air. No significant fluid collection. Lymph nodes: Unremarkable. No enlarged lymph nodes. Urinary bladder: Unremarkable. No mass. Reproductive: Unremarkable as visualized. Bones/joints: No acute fracture. Soft tissues: Laxity of the ventral abdominal wall consistent with diastasis recti. Other findings: The examination is moderately limited secondary to patient body habitus. Umbilical IMPRESSION: 1. The examination is moderately limited secondary to patient body habitus. 2. At the time of imaging, no active vascular extravasation was observed. It is recommended to correlate with clinical findings for comprehensive assessment.
--- NOTE | 2024-01-05 16:31 | HMH.EDGENADL ---
Discharge Plan Disposition Patient Disposition: Home, Self-Care Prescriptions Prescriptions: New ondansetron 4 mg tablet,disintegrating 4 mg PO Q6H PRN (Reason: nausea and vomiting) 5 Days Qty: 20 0RF No Action Vraylar 1.5 mg capsule 1.5 mg PO DAILY Patient Comments: TAKE 1 CAPSULE BY MOUTH EVERY MORNING penicillin V potassium 500 mg tablet 500 mg PO BID Qty: 20 0RF ondansetron 4 mg tablet,disintegrating 4 mg PO Q8H PRN (Reason: nausea and vomiting) Qty: 10 0RF Referrals Follow up/Referrals: Guanako Dao MD [Staff Physician] - See instructions Shanon Mcgee MD [Primary Care Provider] - See instructions Activity Restrictions/Add. Instructions Additional Instructions/Restrictions: Your symptoms today from the history standpoint were concerning for an upper gastrointestinal bleed. However your workup including labs and a CAT scan were completely unremarkable. You declined a rectal/stool evaluation. Given the stability of your presentation I am okay with you following up closely in an outpatient setting. I spoke with Dr. Dao on the phone who advised that you call his clinic first thing in the morning and have his clinic set up an appointment within the next few days for either himself or his partner Dr. Johnson to see you. Please return with any significant worsening of your symptoms. Clinical Impressions Clinical Impression: Abdominal pain Instructions Patient Instructions: DI for Acute Abdominal Pain Print Language Print Language: Turkmen Discharge ED Provider: Huyen Montoya General Adult HPI General Chief complaint: Abdominal Pain Stated complaint: Stomach pain,vomiting black stuff Time Seen by Provider: 01/05/24 16:31 Mode of Arrival: Ambulatory Source of Information: Patient Limitations: No Limitations Description of Symptoms (Recalled from ER Triage Doc. by RN): pt to the ED with sharp, stabbing pains in her epigastric area x 2 months. pt reports it felt like a strong hunger pain that she was able to eat a small amount of food and get relief. pt reports over the last week the pain has been worse, increased fatigue and vomiting what appeared to be black/red tinged emesis yesterday. pt denies any pain at this moment but has a lot of pressure in her abdomen. pt also reports dark stool for 1 month History of Present Illness HPI narrative: Patient is a 33-year-old previously healthy female presenting today with epigastric abdominal pain coffee-ground emesis and melena. She states this has been ongoing intermittently over the last month. States initially that the pain was postprandial in nature but has since become constant. No significant sudden worsening of her pain. She is not on any NSAIDs does have a history of drinking heavily maybe once a week but no prolonged alcohol addiction or abuse no history of liver disease that she is aware of. She is not on any anticoagulants has no other medical problems and is not on any medications. She states that she has been very weak over the last several days and that those around her states that she looks much more pale than normal. Related Data Home Medications ?Medication ?Instructions ?Recorded ?Confirmed cariprazine 1.5 mg capsule 1.5 mg PO DAILY 05/11/23 05/11/23 (Vraylar) Previous Rx's ?Medication ?Instructions ?Recorded ondansetron 4 mg disintegrating 4 mg PO Q8H PRN nausea and 05/11/23 tablet vomiting #10 tabs penicillin V potassium 500 mg 500 mg PO BID #20 tabs 05/11/23 tablet ondansetron 4 mg disintegrating 4 mg PO Q6H PRN nausea and 01/05/24 tablet vomiting 5 days #20 tabs Allergies Allergy/AdvReac Type Severity Reaction Status Date / Time No Known Allergies Allergy Verified 02/05/23 08:48 [facility] Disclaimer: The information contained in this section may have been updated after the patient was seen, as this information can be updated by other users. Medical History Anxiety Depression Hypertension Surgical History History of section History of cholecystectomy History of tonsillectomy History of tubal ligation Family History (Updated 02/05/23 @ 08:50 by Norbert Aleman RN) Other Family history of diabetes mellitus type II Social History (Updated 02/05/23 @ 08:50 by Norbert Aleman RN) Smoking Status: Current every day smoker tobacco type: cigarettes packs per day: 1 second hand exposure: No alcohol intake: never counseling provided: none substance use type: denies use current occupational status: unemployed Travel in the last 8 weeks: None household members: children housing: house caffeine: Yes ROS Obtained: Yes All systems reviewed & no additional complaints except as documented Physical Exam General General appearance: alert and in no apparent distress Respiratory Respiratory exam: Present normal lung sounds bilaterally Cardiovascular Cardiovascular exam: Present regular rate Abdominal Exam Abdominal exam: Present soft and tenderness (Epigastric) Neurological Exam Neurological exam: Present alert and oriented X3 Medical Decision Making Kenji Inquiry Pt receiving controlled substance: No Vital Signs: 01/05/24 15:33 Temperature 98.0 F Temperature Source Oral Pulse Rate [Left Radial] 86 Respiratory Rate 17 Blood Pressure [Right Arm] 130/66 Blood Pressure Mean [Right Arm] 87 Blood Pressure Source [Right Arm] Automatic Cuff Blood Pressure Position [Right Arm] Sitting 02 Sat by Pulse Oximetry 98 Oxygen Delivery Method Room Air Lab Data Lab results reviewed: Yes I reviewed the patient's lab results. Lab Results 01/05/24 16:36: WBC 9.1, RBC 4.76, Hgb 13.1, Hct 40.5, MCV 85.2, MCH 27.5, MCHC 32.3, RDW 15.3, Plt Count 287, MPV 8.8, Neut % (Auto) 73.9, Lymph % (Auto) 21.2, [place] % (Auto) 3.9, Eos % (Auto) 0.8, Baso % (Auto) 0.2, Neut # (Auto) 6.7, Lymph # (Auto) 1.9, [place] # (Auto) 0.4, Eos # (Auto) 0.1, Baso # (Auto) 0.0, PT 9.9 L, INR 0.87 L, APTT 29.4, Sodium 140, Potassium 3.7, Chloride 106, Carbon Dioxide 27, Anion Gap 10.7, BUN 5 L, Creatinine 0.50 L, Estimated Creat Clear 157, Estimated GFR 143, Est GFR ( Amer) 173, Glucose 87, Calcium 8.8, Total Bilirubin 0.4, AST 28, ALT 28, Alkaline Phosphatase 93, Total Protein 7.9, Albumin 3.9, Globulin 4.0 H, Albumin/Globulin Ratio 1.0 L, Serum HCG, Qual Negative 01/05/24 16:38: Blood Type B Positive, Antibody Screen Negative 01/05/24 16:36 01/05/24 16:36 Orders (Tests/Meds): ED MEDICATIONS Generic Name Dose Route Start Last Admin Trade Name Freq PRN Reason Stop Dose Admin Sodium Chloride 10 ml 01/05/24 16:33 Sodium Chloride 0.9% 10ml Vial IV 02/04/24 16:32 NEEDED PRN dilute protonix Discontinued Medications Generic Name Dose Route Start Last Admin Trade Name Freq PRN Reason Stop Dose Admin Lactated Ringer's 1,000 mls @ 999 mls/hr 01/05/24 16:30 01/05/24 16:40 Lactated Ringer's 1000 Ml Bag IV 01/05/24 17:30 999 mls/hr .Q1H1M RL Administration Iopamidol 100 ml 01/05/24 17:40 01/05/24 17:43 Iopamidol-370 (76%);100ml Bottle IV 01/05/24 17:41 100 ml ONCE ONE Administration Ondansetron HCl 4 mg 01/05/24 16:29 01/05/24 16:40 Ondansetron 4mg/2ml Vial IV 01/05/24 16:30 4 mg ONCE ONE Administration Pantoprazole Sodium 40 mg 01/05/24 16:33 01/05/24 16:40 Pantoprazole 40mg Vial IV 01/05/24 16:34 40 mg ONCE ONE Administration Sodium Chloride 10 ml 01/05/24 17:40 01/05/24 17:43 Sodium Chloride 0.9% 10ml Syr (Rad Only) IV 01/05/24 17:41 10 ml ONCE ONE Administration Sodium Chloride 50 ml 01/05/24 17:40 01/05/24 17:43 0.9 % Sodium Chloride 50 Ml Vial IV 01/05/24 17:41 50 ml ONCE ONE Administration ORDERS Category Date Time Status Type and Screen Stat BBK 01/05/24 16:[address] angio abdomen pelvis Stat Cat Scan 01/05/24 16:29 Completed CBC w/Auto Diff [Complete Blood Count Auto Diff] Stat Lab 01/05/24 16:36 Completed CMP [Comprehensive Metabolic Panel] Stat Lab 01/05/24 16:36 Completed HCG Qualitative, Serum Stat Lab 01/05/24 16:36 Completed Occult Blood,Stool Stat Lab 01/05/24 16:29 Ordered PT/PTT Stat Lab 01/05/24 16:36 Completed Medical Decision Narrative: 33-year-old female presents today with coffee-ground emesis melena epigastric abdominal pain that was initially postprandial and history of looking more pale with fatigue all consistent with an upper GI bleed likely with acute blood loss anemia. Type and screen has been placed CT angiography of the abdomen pelvis have been ordered will do an occult blood once we get her into room for a rectal exam initiate IV fluids and will reassess she is hemodynamically stable at the moment. Will also give her a dose of IV PPI Reassessment 6:[address] scan performed which I first interpreted also looked at radiology read which is unremarkable labs also unremarkable H&H is normal no BUN/creatinine ratio elevation overall patient's Glascow Blatchford score is negative if from a physical exam standpoint she had no melena. However she refused to allow me to do a rectal exam so I could not evaluate whether or not she had objective melena. From history standpoint she certainly gives a good history for an upper GI bleed. For this reason I discussed the case with Dr. Dao for close outpatient follow-up patient is agreeable and prefers this plan. She will call first thing in the morning to his clinic they will get her on the schedule very soon she will return with any worsening symptoms. Critical Care Critical Care Time Critical Care Time: No
[2024-01-05] MEDS: PANTOPRAZOLE 40MG VIAL 40 MG IV (16:40)
[2024-01-05] MEDS: LACTATED RINGERS 1000ML 1,000 ML 999 ML IV (16:40)
[2024-01-05] MEDS: ONDANSETRON 4MG/2ML VIAL 4 MG IV (16:40)
[2024-01-05 16:52] LABS: Basophils % 0.2 % (0.1-2.0); Eosinophils # 0.1 K/mm3 (0.0-0.4); Eosinophils % 0.8 % (0.1-12.0); Hematocrit 40.5 % (37.0-47.0); Hemoglobin 13.1 g/dL (12.2-16.2); Lymphocytes # 1.9 K/mm3 (0.7-4.5); Lymphocytes % 21.2 % (10-50); Mean Corpuscular HGB Conc 32.3 g/dL (31.8-35.4); Mean Corpuscular Hemoglobin 27.5 pg (27.0-31.2); Mean Corpuscular Volume 85.2 fl (81-99); Mean Platelet Volume 8.8 fl (7.4-10.4); Monocytes # 0.4 K/mm3 (0.1-1.0); Monocytes % 3.9 % (1.7-9.3); Neutrophils # 6.7 K/mm3 (1.8-7.8); Neutrophils % 73.9 % (37.0-80.0); Platelet Count 287 K/mm3 (142-424); Red Blood Count 4.76 M/mm3 (4.20-5.40); Red Cell Distribution Width 15.3 % (11.5-17.5); White Blood Count 9.1 K/mm3 (4.8-10.8)
[2024-01-05 16:55] LABS: Alanine Aminotransferase 28 U/L (12-78); Albumin Level 3.9 g/dl (3.5-5.0); Alkaline Phosphatase 93 U/L (38-126); Anion Gap 10.7 mEq/L (5-15); Aspartate Amino Transferase 28 U/L (14-36); Bilirubin,Total 0.4 mg/dl (0.2-1.3); Blood Urea Nitrogen 5 mg/dl (7-17); Calcium 8.8 mg/dl (8.4-10.2); Carbon Dioxide 27 mmol/L (22.0-30.0); Chloride 106 mmol/L (98-107); Creatinine Clearance Estimated 157 mL/min (50-200); Estimated Glomerular Filt Rate 143 ml/min (>60); GFR (African American) 173 ML/MIN (>60); Glucose 87 mg/dl (74-100); Potassium 3.7 mmoL/L (3.5-5.1); Sodium 140 mmol/L (136-145); Total Protein,Serum 7.9 g/dl (6.3-8.2)
[2024-01-05 16:58] LABS: HCG Qualitative, Serum Negative (Negative)
[2024-01-05 16:59] LABS: Activated Partial Thrombo Time 29.4 seconds (22.8-30.6); INR 0.87 (0.9-1.1); Prothrombin Time 9.9 seconds (10.1-12.5)
--- NOTE | 2024-01-05 17:37 | PC.NURSE ---
I went to CT to see the pt. I attempted to start a new IV in pts LAC, I was unsuccessful. I redressed the RAC IV and it became easier to flush.
[2024-01-05] MEDS: SODIUM CHLORIDE 0.9% 10ML SYR (RAD ONLY) 10 ML IV (17:43)
[2024-01-05] MEDS: 0.9 % SODIUM CHLORIDE 50 ML VIAL IV (17:43)
[2024-01-05] MEDS: IOPAMIDOL-370 (76%);100ML BOTTLE 100 ML IV (17:43)
--- NOTE | 2024-01-05 17:44 | PC.NURSE ---
PT RETURNED FROM CT
--- NOTE | 2024-01-05 18:42 | PC.NURSE ---
Dr Montoya had Dr Dao paged for consult about this pt
--- NOTE | 2024-01-05 18:50 | PC.NURSE ---
Dr. Montoya speaking with Dr. Dao for consult
[2024-01-05 19:00] VITALS: BP 131/74; PULSE 88; RESP 16; TEMP 36.7; O2SAT 99
== END 2024-01-05 19:01 | disposition home or self-care (01) ==
PROVIDERS: Emergency Provider Student in an Organized Health Care Education/Training Program; PCP Family Medicine
DX: R10.13 Epigastric pain (principal); F17.210 Nicotine dependence, cigarettes, uncomplicated
CPT/HCPCS: 74174; 80053; 84703; 85025; 85610; 85730; 86850; 96361; 96374; 96375; 99284; J2405; J7120; Q9967